=== PATIENT | female | born 1955 | race Caucasian/White ===

== ENCOUNTER 2020-08-15 14:22 | Emergency (ER) | payer SELFPAY ==
--- NOTE | 2020-08-15 14:33 | XRR_ITS ---
PROCEDURE INFORMATION: Exam: XR Left Ankle Exam date and time: 08/15/2020 2:34 PM Age: 64 years old Clinical indication: Injury or trauma; Fall; Initial encounter; Blunt trauma; Ankle; Left; Injury date: 08/15/20; Additional info: Deformity TECHNIQUE: Imaging protocol: XR Left ankle. Views: 3 or more views. COMPARISON: No relevant prior studies available. FINDINGS: Bones/joints: There is a displaced bimalleolar fracture seen with transverse displaced fracture of the medial malleolus and oblique displaced fracture of the distal shaft of the fibula. Are Soft tissues: Soft tissue edema is seen in the anterior and lateral aspect of the ankle XR/XR ankle LT min 3V* [id number] IMPRESSION: 1. Bimalleolar fracture 2. Soft tissue edema
[2020-08-15 14:40] VITALS: BP 120/75; PULSE 102; RESP 16; TEMP 36.9; O2SAT 96; BMI 29.4
--- NOTE | 2020-08-15 15:26 | PC.NURSE ---
no report assuming care of pt.
[2020-08-15] MEDS: ondansetron 2 mg/ML SDV 2 mL 4 MG IVP (15:46)
[2020-08-15 15:49] VITALS: RESP 20; O2SAT 99
[2020-08-15] MEDS: HYDROmorphone 1 mg/mL INJ 1 mL IVP (15:49)
--- NOTE | 2020-08-15 15:51 | PC.NURSE ---
PT HAS STIRRUP AND POSTERIOR SPLINT APPLIED TO LEFT ANKLE BY DR. CLINE.
[2020-08-15 15:54] VITALS: BP 92/72; PULSE 103; RESP 20; O2SAT 96
--- NOTE | 2020-08-15 15:56 | XRR_ITS ---
PROCEDURE INFORMATION: Exam: XR Left Ankle Exam date and time: 08/15/2020 4:44 PM Age: 64 years old Clinical indication: Condition or disease; Foot deformities; Ankle; Other: Fracture; Left; Additional info: Post reduction TECHNIQUE: Imaging protocol: XR Left ankle. Views: 3 or more views. COMPARISON: CR XR ankle LT min 3V* [id number] 08/15/2020 3:04 PM FINDINGS: Bones/joints: Displaced bimalleolar fracture is seen with transverse fracture of the medial malleolus, oblique fracture of the lateral malleolus. Soft tissues: Soft tissue edema is seen in both the medial and lateral aspect of the ankle. Splint material is now in place obscuring soft tissue details. XR/XR ankle LT min 3V* [id number] IMPRESSION: Bimalleolar fracture status post splint placement.
--- NOTE | 2020-08-15 17:32 | ED_ITS ---
HPI - Extremity Problem General: Chief complaint: Extremity Injury, Lower Stated complaint: fracture of left ankle Time Seen by Provider: 08/15/20 14:32 History of Present Illness: HPI Narrative: This patient is a 64-year-old female who fell off her front steps today and broke her left ankle. She denies any other injuries. MD Complaint: extremity pain and joint pain Onset (ago): hour(s) (Just prior to arrival) Pain Consistency: constant Location: left and lower extremity Quality: aching Associated symptoms: Deny chest pain or fever(s) Review of Systems Const: Denies: fever(s) Card: Denies: chest pain Resp: Denies: dyspnea Musc: Reports: joint pain Neuro: Denies: numbness in extremities Physical Exam Const: COMMON NORMALS: patient oriented x3, no limitations and alert GENERAL APPEARANCE: cooperative HENMT: HEAD & SCALP: normal to inspection FACE & SINUS: normal facial exam Eye: GENERAL EYE: appearance normal, both eyes and all related structures Neck/C-Spine: COMMON NORMALS: supple, no meningeal signs and no JVD Chest: COMMONS NORMALS: normal inspection of the chest Resp: COMMON NORMALS: normal respiratory effort, No use of accessory muscles and clear to auscultation bilaterally AUSCULTATION: clear to auscultation bilaterally Cardio: COMMON NORMALS: no JVD, regular rate, regular rhythm and No murmurs present (Cardio) RATE: regular rate RHYTHM: regular rhythm GI: COMMON NORMALS: Normal to inspection, nondistended, normoactive bowel sounds present, Soft to palpation and non-tender INSPECTION: Yes normal to inspection AUSCULTATION: Yes normoactive bowel sounds PALPATION: Yes Soft to palpation Back/Pelvis: COMMON NORMALS: thoracic and lumbar spine normal to inspection Extremity: GENERAL: Yes normal exam except as noted LEFT LOWER EXTREMITY: Yes ankle joint (Swelling, ecchymosis, deformity. No open breaks in the skin. Sensation and pulses intact.) Neuro: COMMON NORMALS: patient oriented x3, moves all extremities, no focal motor deficits and no sensory deficits noted SENSORIUM/ORIENTATION: Yes alert MENINGEAL SIGNS: Yes no meningeal signs Psych: COMMON NORMALS: mental status grossly normal, cooperative and normal affect Skin: COMMON NORMALS: no rashes or lesions noted and turgor normal GENERAL SKIN EXAM: no rashes or lesions noted and turgor normal Course ED course: Patient with obvious deformity of the left ankle. X-rays show bimalleolar fracture with some displacement. I medicated her with pain meds and did some minimal reduction of the ankle and splinted it with a stirrup and posterior short leg. There was improved positioning on the repeat x-ray. Pulses were still intact. Patient be discharged home with pain medication. I spoke with Dr. Menezes and she will see her in the office on Tuesday to schedule surgery. Vital Signs: Vital signs: Vital Signs Temperature 98.5 F 08/15/20 14:40 Pulse Rate 103 H 08/15/20 15:54 Respiratory Rate 20 H 08/15/20 15:54 Blood Pressure 92/72 08/15/20 15:54 Pulse Oximetry 96 08/15/20 15:54 Discharge Plan Discharge Patient Disposition: Home Clinical Impression: Ankle fracture Qualifiers: Encounter type: initial encounter Fracture type: closed Laterality: left Qualified Code(s): S82.892A - Other fracture of left lower leg, initial encounter for closed fracture Condition: Stable Prescriptions: New oxycodone-acetaminophen 5-325 mg tablet 1 tab PO QID PRN (Reason: pain) Qty: 14 RF: 0 No Action Tylenol 325 mg Tablet 325 mg PO QID PRN (Reason: FEVER/PAIN) RF: 0 valsartan-hydrochlorothiazide 160-12.5 mg tablet 1 tab PO DAILY RF: 0 citalopram 20 mg tablet 20 mg PO DAILY RF: 0 ibuprofen 200 mg Tablet 200 - 400 mg PO DAILY RF: 0 ProAir HFA 90 mcg/actuation HFA aerosol inhaler See Rx Instructions .ROUTE .COMPLEX RF: 0 magnesium 200 mg Tablet 200 mg PO DAILY RF: 0 Multiple Vitamin, Womens Tablet 1 tab PO DAILY RF: 0 Discharge Orders: Discharge Order (Routine); Ordered 08/15/20 Ordered By: Padma Yang Referrals: Ericka Leiva MD [Physician] - 1-3 days Discharge Diet: Usual diet Discharge Activity: Resume usual activity Patient Instructions: Ankle Fracture (ED) Activity Restrictions/Additional Instructions: Follow-up with Dr. Leiva on Tuesday. You will most likely need surgery on the ankle. Do not put any weight on your ankle. Use the pain medication as prescribed. Return to the emergency department if worsening symptoms including numbness, pain in the toes. Coding Level of Care Code ED Customer Experience Retail Clerk for Kirill Garcia
[2020-08-15 19:18] VITALS: BP 128/109; PULSE 110; RESP 17; O2SAT 94
--- NOTE | 2020-08-15 19:24 | PC.NURSE ---
REPORT GIVEN TO NICOLLE DORADO ASSUMED CARE
[2020-08-18 10:57] LABS: Coronavirus Lab Test PTC Negative
== END 2020-08-15 20:16 | disposition home or self-care (01) ==
PROVIDERS: Emergency Provider Emergency Medicine
DX: S82.842A Displaced bimalleolar fracture of left lower leg, initial encounter for closed fracture (principal); W10.8XXA Fall (on) (from) other stairs and steps, initial encounter
CPT/HCPCS: 12345; 29515; 73610; 87635; 96374; 96375; 99283; J1170; J2405

== ENCOUNTER 2020-08-19 09:04 | Day surgery (SDC) | payer MEDICARE, SELFPAY ==
--- NOTE | 2020-08-19 | SCC_ITS ---
Procedure Done: Open reduction internal fixation left trimalleolar ankle fracture utilizing the [place] fixation system with a 4-hole lateral fibular plate and 2 headless compression screws medially 95.1 seconds of fluoroscopic guidance, for a cumulative dose of 1.26 mGy, was provided to Dr. Leiva by the radiology department. C-arm images of the LEFT ankle were saved for the patient's permanent record. PAUL
--- NOTE | 2020-08-19 | XR_ITS ---
WS: [id number] INTRAOPERATIVE TECHNIQUE: 4 Spot fluoroscopic images for intraoperative purposes. FLUOROSCOPY TIME: 95.1 seconds CLINICAL INFORMATION: OR PICS FINDINGS: Plate and screw fixation involving the distal fibula and lateral malleolus. Screw fixation across the medial malleolus. Normal ankle mortise. XR/XR ankle LT min 3V* [id number] IMPRESSION: Images obtained for intraoperative purposes.
[2020-08-19 09:37] VITALS: BP 168/78; PULSE 115; RESP 20; TEMP 36.2; O2SAT 99; BMI 29.7
[2020-08-19 09:37] LABS: Add Urine Microscopic? NO
--- NOTE | 2020-08-19 10:02 | P.HPUD_ITS ---
Surgery/Procedure H&P Update DATE OF PROCEDURE: August 19, 2020 DATE H&P PERFORMED: 08/18/20 H&P UPDATE INFORMATION: I have reviewed H&P completed within last 30 days, No changes to prior documentation and H&P is in [facility] EMR on date indicated PREOP DIAGNOSIS: Left trimalleolar ankle fracture PLANNED PROCEDURE: Operation Date: 08/19/20 10:45 Proposed Procedures p ORIF Ankle(Right) - Ericka Leiva MD Related Problem List Diagnoses (1) Trimalleolar fracture of left ankle: Qualifiers: Encounter type: initial encounter Fracture type: closed Qualified Code(s): S82.852A - Displaced trimalleolar fracture of left lower leg, initial encounter for closed fracture
[2020-08-19 10:08] LABS: Bilirubin Urine 1+ (Negative); Blood Urine Neg (Negative); Glucose Urine UA Norm (Normal); Ketones Urine 1+ (Negative); Leukocyte Esterase Urine Negative (Negative); Nitrate Urine Negative (Negative); Protein Urine Neg (Negative); Specific Gravity, Urine 1.015 (1.005-1.030); Urine Appearance Clear (CLEAR); Urine Color Yellow (Yellow); Urobilinogen Urine 1 mg/dL (Negative); pH Urine 5 (5-7)
[2020-08-19 10:18] LABS: Basophils # 0.1 10^3/uL (0.0-0.1); Basophils % 0.9 %; Eosinophils # 0.3 10^3/uL (0.0-0.8); Eosinophils % 4.2 %; Hemoglobin 11.8 g/dL (11.5-15.3); Lymphocytes # 2.3 10^3/uL (0.8-4.8); Lymphocytes % 30.3 %; Mean Corpuscular HGB Conc 32.8 g/dL (30.0-36.0); Mean Corpuscular Hemoglobin 32.6 pg (28.0-34.0); Mean Corpuscular Volume 99.4 fL (81-99); Mean Platelet Volume 10.6 fL (7.4-10.4); Monocytes # 0.5 10^3/uL (0.2-0.9); Monocytes % 6.9 %; Neutrophils # 4.33 10^3/uL (1.8-7.7); Neutrophils % 57.3 %; Nucleated Red Blood Cells % 0 %; Platelet Count 216 10^3/cmm (130-400); Red Blood Count 3.62 10^6/uL (4.1-5.3); Red Cell Distribution Width 12.8 % (12.1-15.1); White Blood Count 7.6 10^3/uL (4.0-10.0)
[2020-08-19] MEDS: sodium chloride 0.9% 1,000 ML 30 ML IV (10:18)
[2020-08-19] MEDS: CELEcoxib 200 mg Capsule 400 MG PO (10:19)
--- NOTE | 2020-08-19 10:33 | ANES.PREANE2 ---
Pre-Anesthetic Assessment Pre-Anesthetic Assessment: Height/Weight: Height 1.7 m Weight 86.183 kg Temp Pulse Resp BP Pulse Ox 97.2 F L 115 H 20 H 168/78 99 08/19/20 09:37 08/19/20 09:37 08/19/20 09:37 08/19/20 09:37 08/19/20 09:37 Preop Diagnosis: Left trimalleolar ankle fracture Proposed Procedure: Operation Date: 08/19/20 10:45 Proposed Procedures p ORIF Ankle(Right) - Ericka Leiva MD Familial anesthetic complications: none Was Beta Nikki taken within 24 hours: N/A Last intake: Intake Last Liquid Date 08/19/20 Last Liquid Time 06:30 Last Solid Date 08/18/20 Last Solid Time 19:30 Social: Social History: Tobacco and No alcohol Exam: Pre-Anes Outpt Exam: alert, oriented x 3, clear to auscultation bilaterally and regular rate & rhythm Airway: Cervical ROM: WNL MP: 3 Dentition: Other (no teeth) Pulmonary: Pulmonary: COPD CV/HEM: CV/HEM: HTN Anesthetic Plan: ASA status: 3 Anesthesia: General and Regional (specify below) Risk of > 500 ml blood loss (7ml/kg in children): No Meds/Allergies Current Medications: Current Medications Generic Name Dose Route Start Last Admin Trade Name Freq PRN Reason Stop Dose Admin Sodium Chloride 1,000 mls @ 30 ml s/hr 08/19/20 09:30 08/19/20 10:18 Sodium Chloride 0.9% IV 08/20/20 09:29 30 mls/hr .Q24H KELLY Administration PFSH Anesthesia PFSH: Medical History (Updated 08/19/20 @ 10:03 by Ericka Leiva MD) Accelerated essential hypertension COPD (chronic obstructive pulmonary disease) Surgical History H/O left knee surgery Hx of total hip arthroplasty Family History Denies family history of Diabetes CAD (coronary artery disease) Hypertension Stroke Social History Smoking and tobacco status: current every day smoker cigarettes Packs smoked per day: 0.5 Data Anesthesia CBC & Chem 7: 08/19/20 10:05 08/19/20 10:05 Other Labs: Laboratory Results - last 48 hr 08/19/20 08/19/20 09:27 10:05 WBC 7.6 RBC 3.62 L Hgb 11.8 Hct 36.0 L MCV 99.4 H MCH 32.6 MCHC 32.8 RDW 12.8 Plt Count 216 MPV 10.6 H Neut % (Auto) 57.3 Lymph % (Auto) 30.3 [place] % (Auto) 6.9 Eos % (Auto) 4.2 Baso % (Auto) 0.9 Neut # (Auto) 4.33 Lymph # (Auto) 2.3 [place] # (Auto) 0.5 Eos # (Auto) 0.3 Baso # (Auto) 0.1 Nucleated RBC % (auto) 0 Nucleated RBCs # 0.0 Urine Color Yellow Urine Appearance Clear Urine pH 5 Ur Specific [place] 1.015 Urine Protein Neg Urine Glucose (UA) Norm Urine Ketones 1+ H Urine Blood Neg Urine Nitrate Negative Urine Bilirubin 1+ H Urine Urobilinogen 1 H Ur Leukocyte Esterase Negative Cardiac Studies: No Data to Display
[2020-08-19 10:35] LABS: Blood Urea Nitrogen 19 mg/dL (8-23); Calcium 9.7 mg/dL (8.5-10.5); Carbon Dioxide 19 mmol/L (22-29); Chloride 100 mmol/L (98-107); Glomerular Filtration Rate 41.4 mL/min (90-130); Glucose 87 mg/dL (65-115); Osmolality Calculated 288 mOsm/kg (285-295); Sodium 138 mmol/L (136-145)
[2020-08-19 10:40] LABS: Anion Gap 23.1 (5-19); Potassium 4.1 mmol/L (3.5-5.1)
--- NOTE | 2020-08-19 10:54 | ANES.PROC ---
Anesthesia Procedures Procedure/Date: 08/19/20 Nerve Block ^: Nerve Block 1: Main Anesthesia: general anesthesia Time Out Performed: Yes Consent: requested by attending/covering physician, from patient, risks and benefits reviewed and patient agrees to proceed Nerve block location: adductor canal (L) Anesthesia monitors applied: pulse oximetry, EKG, BP cuff and oxygen Nerve block position: supine Anesthetic Used: ropivicaine 0.5% and with decadron (1 mg) Amount of anesthesia used (mL): 10 Ultrasound used to: recognize landmarks Interscalene/Femoral BLK: 4 stimuplex 21 g needle used for position and inplane approach, visualize local anesthetic spread and no vascular puncture identified Injection: neg aspiration of heme Patient Tolerated Procedure: well Complications: none Nerve Block 2: Main Anesthesia: general anesthesia Time Out Performed: Yes Consent: requested by attending/covering physician, from patient, risks and benefits reviewed and patient agrees to proceed Nerve block location: popliteal (L) Anesthesia monitors applied: pulse oximetry, EKG, BP cuff and oxygen Nerve block position: supine Anesthetic Used: ropivicaine 0.5% and with decadron (3 mg) Amount of anesthesia used (mL): 20 Ultrasound used to: recognize landmarks Nerve Stimulator Used?: No Interscalene/Femoral BLK: 4 stimuplex 21 g needle used for position and inplane approach, visualize local anesthetic spread and no vascular puncture identified Injection: neg aspiration of heme Patient Tolerated Procedure: well Complications: none
[2020-08-19] MEDS: midazolam 1 mg/mL INJ 5 ML 5 MG IVP (10:56)
--- NOTE | 2020-08-19 10:57 | SUR.PREOP ---
1040 gave only 1 mg of versed per Dr. Mari Phan. wasted 4 mg of Versed.
[2020-08-19] MEDS: ceFAZolin 1,000 mg SDV 1000 MG IRRIGATION (12:13)
[2020-08-19] MEDS: vancomycin 1,000 MG in sodium chloride 0.9% 250 ML 250 MG IV (12:33)
--- NOTE | 2020-08-19 12:50 | SUR.OPER ---
Called son and updated him on surgical progress.
[2020-08-19 13:30] VITALS: BP 123/65; PULSE 120; RESP 16; TEMP 36.7; O2SAT 98
[2020-08-19 13:35] VITALS: BP 142/71; PULSE 120; RESP 18; O2SAT 98
[2020-08-19 13:40] VITALS: BP 141/78; PULSE 113; RESP 15; TEMP 36.7; O2SAT 98
--- NOTE | 2020-08-19 13:40 | P.OP_ITS ---
Operative Report Date of procedure: August 19, 2020 Pre-op Diagnosis: Left trimalleolar ankle fracture Post-op diagnosis: same Procedure Done: Open reduction internal fixation left trimalleolar ankle fracture utilizing the Danna fixation system with a 4-hole lateral fibular plate and 2 headless compression screws medially Specimens removed/disposition: None Pathology: none sent Surgeon: Ericka Leiva Network Firewall Engineer: [facility] OR technicians Anesthesia: General (ASA 3, per LMA with supplemental regional block.) Estimated blood loss (mL): 5 Tourniquet time (min): 64 Tourniquet time: At 250 mmHg IV fluids (mL): 700 Urine output (mL): 0 Urine output: No [place]ry Complications: None Condition: stable Disposition: PACU (Then back to same-day surgery for discharge) Brief History: This 65-year-old woman presented to the office after an emergency department visit. She had a displaced unstable trimalleolar ankle fracture. After discussion in the office, we elected to proceed with operative intervention. The patient was scheduled for open reduction internal fixation. Risks and complications were discussed with her. Preoperatively, she did obtain a wheelchair. She also had a walker available at home. Procedure: Patient was seen in the preoperative holding area and leg was marked. Patient was brought to the operating theater and placed on the operating room table. After undergoing adequate general anesthesia per LMA which was supplemented with a regional block preoperatively, the patient's left lower extremity was prepped and draped in usual fashion utilizing DuraPrep. The leg was draped free. Fluoroscopy was used throughout the surgical procedure. We did have a tourniquet high on the left lower extremity. This was elevated to 250 mmHg and total tourniquet time was 64 minutes. Tourniquet elevation followed exsanguination of the leg. A surgical pause was performed. At the time of the surgical pause we identified the site and side of surgery as well as the patient's identity and availability of equipment. We also confirmed appropriate administration of IV antibiotics. Following the above, an incision was made centering over the patient's oblique fibular fracture. The incision was continued proximally and distally as necessary to allow access to the fracture and to give sufficient room for plate placement. We were able to reduce the fracture anatomically. This was held with a clamp while we contoured a plate to appropriately fit the patient's distal fibula fracture. A Danna 4-hole lateral fibular plate plate was attached with standard technique. We used a combination of locking as well as one nonlocking screw. Once the plate was appropriately attached, we irrigated the wound. We then closed the wound with 0 Vicryl in the fascial tissues, 2-0 Monocryl in the subcutaneous tissues, and the skin was closed with 3-0 Monocryl. Attention was then directed to the [] aspect of the ankle. Once again, we used fluoroscopy to determine the appropriate level of the incision as well as palpation over the fracture. An incision was made over the site of the fracture. We were then able to reduce the fracture. Upon evaluation of the fracture, there was found to be significant soft tissue between the 2 pieces and this was removed. 2 guidewires were placed in appropriate position as visualized in AP and lateral planes. We were then able to place cannulated screws, which were 42 mm and 44 mm in length over the guidewires to hold the medial malleolus nicely reduced. Throughout the surgical procedure and at the conclusion of the procedure we did use fluoroscopy. Fluoroscopy was utilized to determine appropriate positioning of the plate as well as the fractures. At the conclusion we did obtain AP and lateral images demonstrating the fracture was anatomically reduced. The medial incision was closed with a combination 2-0 Monocryl in the subcutaneous tissues and 3-0 Monocryl in the subcuticular tissues. Sterile dressing was placed consisting of Exofin, 4 x 4's, sterile soft roll and an Chano wrap. The patient was placed in a Cam Walker boot and is to remain nonweightbearing. The procedure was well tolerated without complication. Tourniquet time was 64 minutes at 250 mmHg. The patient will be discharged home to follow-up in my office as scheduled. Associated Problem List Diagnoses (1) Trimalleolar fracture of left ankle: Qualifiers: Encounter type: initial encounter Fracture type: closed Qualified Code(s): S82.852A - Displaced trimalleolar fracture of left lower leg, initial encounter for closed fracture
[2020-08-19 13:49] VITALS: BP 123/85; PULSE 109; RESP 18; TEMP 36.7; O2SAT 98
[2020-08-19 14:24] VITALS: BP 119/98; PULSE 101; RESP 18; O2SAT 96
--- NOTE | 2020-08-19 14:25 | ANE.PACU2 ---
Inpatient post-anesthesia follow up: Airway intact: Yes Vital signs: Temperature 98.1 F Pulse Rate 101 Respiratory Rate 18 Blood Pressure 119/98 Pulse Oximetry 96 Oxygen Delivery Me thod Room Air Oxygen Flow Rate Fraction of Inspir ed Oxygen Hydration adequate: Yes Nausea and vomiting: No Pain level: 1 Mental status: Baseline
== END 2020-08-19 14:28 | disposition home or self-care (01) ==
PROVIDERS: PCP Family Medicine; Visit Provider Specialist
PROC: (CPT 27822; principal; 2020-08-19 10:45)
DX: S82.852A Displaced trimalleolar fracture of left lower leg, initial encounter for closed fracture (principal); X58.XXXA Exposure to other specified factors, initial encounter; I10 Essential (primary) hypertension; J44.9 Chronic obstructive pulmonary disease, unspecified; F17.210 Nicotine dependence, cigarettes, uncomplicated; Z96.649 Presence of unspecified artificial hip joint
CPT/HCPCS: 27822; 12345; 36415; 73610; 76000; 80048; 81003; 85025; 96365; C1713; J0131; J0690; J1100; J2250; J2405; J2704; J2765; J2795; J3010; J3370; J7030; J7050

== ENCOUNTER → 2020-09-03 15:14 | Outpatient (BNVA) | payer MEDICARE, SELFPAY | PROVIDERS: PCP Family Medicine; Visit Provider Specialist | DX: S82.852A Displaced trimalleolar fracture of left lower leg, initial encounter for closed fracture (principal); X58.XXXA Exposure to other specified factors, initial encounter | CPT/HCPCS: 73610 ==

== ENCOUNTER → 2020-09-17 14:34 | Outpatient (BNVA) | payer MEDICARE, SELFPAY | PROVIDERS: PCP Family Medicine; Visit Provider Specialist | DX: S82.852A Displaced trimalleolar fracture of left lower leg, initial encounter for closed fracture (principal); X58.XXXA Exposure to other specified factors, initial encounter | CPT/HCPCS: 73610 ==

== ENCOUNTER 2020-10-01 06:00 | Outpatient (RCR) | payer MEDICARE, SELFPAY | END 2020-10-27 23:59 | disposition home or self-care (01) | LOC: TPT 06:00 | PROVIDERS: PCP Family Medicine; Referring Provider Specialist; Visit Provider Specialist | DX: S82.852D Displaced trimalleolar fracture of left lower leg, subsequent encounter for closed fracture with routine healing (principal); X58.XXXD Exposure to other specified factors, subsequent encounter | CPT/HCPCS: 97161 ==

== ENCOUNTER 2021-07-01 12:14 | Inpatient (IN) | payer MEDICARE, SELFPAY ==
[2021-07-01] VITALS (17 sets, daily range): BP systolic 100–184; BP diastolic 42–106; PULSE 82–119; RESP 12–30; TEMP 36.6–36.8; O2SAT 95–98; BMI 29.0
--- NOTE | 2021-07-01 12:25 | ECG_ITS ---
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 Measurements Intervals [place] Rate: 90 P: 94 NV: 186 QRS: -30 QRSD: 97 T: 62 QT: 398 QTc: 489 Interpretive Statements SINUS RHYTHM BORDERLINE LEFT AXIS DEVIATION [QRS AXIS < -20] LOW QRS VOLTAGE IN EXTREMITY LEADS [QRS DEFLECTION < 0.5 mV IN LIMB LEADS] Compared to ECG 07/01/2021 13:21:19 No significant changes Electronically Signed On 07-01-2021 20:23:34 CDT by Tamika Zambrano M.D. [id number]
--- NOTE | 2021-07-01 12:25 | ECG_ITS ---
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 Measurements Intervals [place] Rate: 92 P: 101 [place]: 169 QRS: -17 QRSD: 98 T: 57 QT: 391 QTc: 486 Interpretive Statements SINUS RHYTHM LOW QRS VOLTAGE IN EXTREMITY LEADS [QRS DEFLECTION < 0.5 mV IN LIMB LEADS] No previous ECG available for comparison Electronically Signed On 07-01-2021 20:24:06 CDT by Tamika Zambrano M.D. [id number]
--- NOTE | 2021-07-01 12:48 | USCV_ITS ---
Shalonda Raina Age: 65 Gender: F : 1955 Exam Date: 07/01/2021 12:32 Ordering Phys: Tamiko Cardoza MD Technologist: RANDAL WALLS Exam Location: [facility] Indication: CHEST PAIN AND QUESTION OF RT HEART STRAIN BP: 116 / 81 HR: 96 Rhythm: Sinus Technical Quality: Adequate MEASUREMENTS (Male / Female) Normal Values 2D ECHO LV Chamber Size 3.2 cm RV Chamber Size 2.3 cm LVOT Diameter 2.0 cm LV Ejection Fraction MOD 2C 77.1 % LV Ejection Fraction 2C AL 77.3 % LA Diameter 2.5 cm LA Width 2.7 cm LA Height 3.8 cm RA Width 2.5 cm RA Height 3.6 cm Aorta at Sinotubular Diameter 3.0 cm M-MODE LV Diastolic Diameter MM 4.5 cm 4.2 - 5.9 / 3.9 - 5.3 cm LV Systolic Diameter MM 2.3 cm LV Ejection Fraction MM Teich 79.9 % IVS Diastolic Thickness MM 1.1 cm 0.6 - 1.0 / 0.6 - 0.9 cm IVS Systolic Thickness MM 1.5 cm LVPW Diastolic Thickness MM 1.1 cm 0.6 - 1.0 / 0.6 - 0.9 cm LVPW Systolic Thickness MM 1.3 cm Aortic Annulus Diameter 3.5 cm LA Ao Ratio MM 0.8 MV E Point Septal Separation 0.3 cm DOPPLER AV Peak Velocity 147.0 cm/s LVOT Peak Velocity 115.0 cm/s AV Area Cont Eq vti 2.3 cm squared AV Area Cont Eq pk 2.5 cm squared MV Area PHT 4.2 cm squared Mitral E to A Ratio 1.1 MV E' Velocity 42.0 cm/s Mitral E to MV E' Ratio 9.2 Mitral E to LV E' Lateral Ratio 10.6 Mitral E to LV E' Septal Ratio 8.2 TR Peak Velocity 139.2 cm/s TR Peak Gradient 7.8 mmHg TR Mean Velocity 95.4 cm/s TR Mean Gradient 4.4 mmHg TR Velocity Time Integral 31.9 cm TV Peak E Velocity 69.0 cm/s Right Atrial Pressure 3.0 mmHg Pulmonary Artery Systolic Pressu 10.8 mmHg PV Peak Velocity 71.0 cm/s RV Acceleration Time 0.2 s RV Ejection Time 0.3 s RV AcT/ET 0.5 FINDINGS Left Ventricle Normal left ventricular size. LV systolic function is normal with EF of 60-65%. No regional wall motion abnormalities. Normal diastolic filling pattern. Right Ventricle The right ventricle is normal in size and function. Right Atrium The right atrium is normal in size. RA pressure is normal Left Atrium The left atrium is normal in size. Mitral Valve Structurally normal mitral valve without significant stenosis or prolapse. There is no mitral regurgitation. Aortic Valve Structurally normal aortic valve without significant sclerosis or stenosis. There is no aortic regurgitation. Tricuspid Valve Structurally normal tricuspid valve without significant stenosis or regurgitation. Insufficient TR jet to calculate RVSP Pulmonic Valve Structurally normal pulmonic valve without significant stenosis. There is no pulmonic regurgitation. Pericardium Normal pericardium without effusion. Aorta Normal ascending aorta dimension. CONCLUSIONS LV systolic function is normal with EF of 60-65%. Normal diastolic function No significant valvular heart disease No comparison studies are available Aaron Mcnair MD (Electronically Signed) Final Date: 01 July 2021 17:52 S
[2021-07-01] MEDS: aspirin 81 mg Chew Tablet 324 MG PO (12:52)
--- NOTE | 2021-07-01 13:03 | ED_ITS ---
HPI - Chest Pain General: Chief Complaint: Chest Pain Stated Complaint: CHEST PAIN Time Seen by Provider: 07/01/21 12:18 History of Present Illness: HPI narrative: 35-year-old female with a history of smoking, hypertension, COPD who presents to the emergency room by EMS for concerns of acute chest pressure x2 hours. Per patient, patient developed pressure-like sensation earlier this morning when she was sitting down at home. Since then, even when EMS arrived, patient was noted to be diaphoretic complaining of severe pain. Patient received 5 doses of sublingual nitro with significant improvement. Patient did not have her dentures and cannot swallow t he aspirin from rescue. Per patient, she denies any jaw pain, arm pain, back pain, abdominal complaints, nausea or vomiting. On arrival, patient reports her pain is 5 out of 10 currently. Denies any shortness of breath, Covid symptoms including cough runny nose sore throat generalized weakness or malaise. Patient denies any lower extremity swelling or history of heart failure, family history of cardiac diseases, prior history of stents or CABG. Onset, 2 hours ago Duration: 2 hours Intensity: moderate Location, home Review of Systems Narrative: Constitutional: No fever, no chills. HEENT: No vision changes, no sore throat. CV: +chest pain, no palpitations. PULM: No cough, No dyspnea. GI: No abdominal pain, no N/V/D. : No dysuria, no frequency, no hematuria. MSKEL: No arthralgias, no edema. SKIN: No new rashes, no lesions. NEURO: No headache, no focal weakness. HEME: No easy bleeding or bruising. PSYCH: No change in mood or affect. [facility] ED PFSH: Medical History Accelerated essential hypertension COPD (chronic obstructive pulmonary disease) Surgical History H/O left knee surgery Hx of total hip arthroplasty Family History Denies family history of Diabetes CAD (coronary artery disease) Hypertension Stroke Social History Smoking and tobacco status: current every day smoker cigarettes Packs smoked per day: 0.5 Physical Exam Narrative: EXAM NARRATIVE: Head: Atraumatic, normocephalic Eyes: PERRL, EOMI, conjunctiva without injection ENT: Throat without erythema, lesions or exudate, MMM NECK: Supple, trachea midline, no JVD LUNGS: LCTA CV: RRR, S1,S2, no murmurs, rubs, gallops. 2+ peripheral pulses in UEs ABDOMEN: Soft, nontender, nondistended, BS x4, no rigidity, no guarding, no rebound EXTREMITY: Normal ROM, no pitting edema, no calf tenderness to palpation SKIN: No rash or erythema NEURO: Awake and alert. No focal motor deficits. PSYCH: Normal mood and affect. Course Vital Signs: Vital signs: Vital Signs Temperature 97.8 F 07/01/21 12:16 Pulse Rate 88 07/01/21 16:29 Respiratory Rate 18 07/01/21 16:29 Blood Pressure 116/61 07/01/21 16:29 Pulse Oximetry 96 07/01/21 16:29 MDM - Chest Pain MDM Narrative: Medical decision making narrative: Patient is a 65-year-old female with a history of hypertension, smoking, COPD who presents to the emergency room with complaints of substernal chest pressure started 2 hours ago no improvement. Currently describing a 5 out of 10 chest pain. On exam, patient is hemodynamically stable and noted to be mildly tachycardic to the low 100s. EKG did not show any signs of acute ischemia or signs of STEMI. Is noted to have a D-dimer of 1.1. Bedside ultrasound did not shows any signs of right heart strain, regional wall motion abnormality, or pericardial effusion. Low voltage on EKG is likely secondary to COPD. Initial troponin within normal limit. CTA negative for PE Patient received aspirin and is currently on a nitro drip titrated to comfort Given age, morbidities and high suspicion for unstable angina, will be been at the hospital for further work-up to the cardiac stepdown unit for stress test Disposition: Admission to cardiac stepdown Lab Data: Labs: Lab Results 07/01/21 07/01/21 07/01/21 Range/Units 13:10 13:10 13:10 WBC Cancelled Corrected WBC Cancelled RBC Cancelled Hgb Cancelled Hct Cancelled MCV Cancelled MCH Cancelled MCHC Cancelled RDW Cancelled Plt Count Cancelled MPV Cancelled Total Counted Cancelled Atypical Lymphs % Cancelled Absolute Neutrophi ls Cancelled Segmented Neutroph ils Cancelled Abs Segm Neuts (Ma n) Cancelled Band Neutrophils Cancelled Abs Band Neuts (Ma n) Cancelled Absolute Lymphocyt es Cancelled Lymphocytes (Manua l) Cancelled Monocytes (Manual) Cancelled Absolute Monocytes Cancelled Eosinophils (Manua l) Cancelled Absolute Eosinophi ls Cancelled Basophils (Manual) Cancelled Absolute Basophils Cancelled Metamyelocytes Cancelled Myelocytes Cancelled Promyelocytes Cancelled Nucleated RBCs Cancelled Pathologist Review Cancelled Hypersegmented Benigno ys Cancelled Blast Cells Cancelled Smudge Cells Cancelled Toxic Granulation Cancelled Toxic Vacuolation Cancelled Dohle Bodies Cancelled Priscila Rods Cancelled Platelet Estimate Cancelled Giant Platelets Cancelled Polychromasia Cancelled Hypochromasia Cancelled Poikilocytosis Cancelled Basophilic Stippli ng Cancelled Anisocytosis Cancelled Microcytosis Cancelled Macrocytosis Cancelled Spherocytes Cancelled Sickle Cells Cancelled Target Cells Cancelled Tear Drop Cells Cancelled Ovalocytes Cancelled Stomatocytes Cancelled Helmet Cells Cancelled [place] Vikram s Cancelled Leidy Cells Cancelled Crenated Cell Cancelled Acanthocytes (Spur ) Cancelled Rouleaux Cancelled Schistocytes Cancelled RBC Morph Comment Cancelled D-Dimer (0-0.59) ug/mIFE U Sodium 141 (136-145) mmol/L Potassium 4.1 (3.5-5.1) mmol/L Chloride 104 (98-107) mmol/L Carbon Dioxide 22 (22-29) mmol/L Anion Gap 19.1 H (5-19) BUN 21 (8-23) mg/dL Creatinine 1.0 H (0.5-0.9) mg/dL GFR Calculation 56.0 L (90-130) mL/min Glucose 80 (65-115) mg/dL Calculated Osmolal ity 294 (285-295) mOsm/k g Calcium 9.3 (8.5-10.5) mg/dL Troponin T Baselin e 9 (0-10) ng/L NT-Pro-B Natriuret Pep 763 H (0-125) pg/mL SARS-CoV-2 Ag (Rap id) (Negative) 08/04/21 08/04/21 08/04/21 Range/Units 13:10 14:18 14:25 WBC 5.4 Corrected WBC RBC 3.50 L Hgb 11.7 Hct 38.5 MCV 110.0 H MCH 33.4 MCHC 30.4 RDW 12.6 Plt Count 200 MPV 11.0 H Total Counted 100 Atypical Lymphs % 3.0 Absolute Neutrophi ls 2.5 Segmented Neutroph ils 46 Abs Segm Neuts (Ma n) 2.5 Band Neutrophils 0.0 Abs Band Neuts (Ma n) 0.0 Absolute Lymphocyt es 2.6 Lymphocytes (Manua l) 46 Monocytes (Manual) 3.0 Absolute Monocytes 0.2 Eosinophils (Manua l) 2 Absolute Eosinophi ls 0.1 Basophils (Manual) 0.0 Absolute Basophils 0.0 Metamyelocytes Myelocytes Promyelocytes Nucleated RBCs Pathologist Review Hypersegmented Benigno ys Blast Cells Smudge Cells Toxic Granulation Toxic Vacuolation Dohle Bodies Priscila Rods Platelet Estimate Normal Giant Platelets Polychromasia Hypochromasia Poikilocytosis Basophilic Stippli ng Anisocytosis Microcytosis Macrocytosis Spherocytes Sickle Cells Target Cells Tear Drop Cells Ovalocytes Stomatocytes Helmet Cells [place] Vikram s [place] Cells Crenated Cell Acanthocytes (Spur ) Rouleaux Schistocytes RBC Morph Comment D-Dimer 1.28 H (0-0.59) ug/mIFE U Sodium (136-145) mmol/L Potassium (3.5-5.1) mmol/L Chloride (98-107) mmol/L Carbon Dioxide (22-29) mmol/L Anion Gap (5-19) BUN (8-23) mg/dL Creatinine (0.5-0.9) mg/dL GFR Calculation (90-130) mL/min Glucose (65-115) mg/dL Calculated Osmolal ity (285-295) mOsm/k g Calcium (8.5-10.5) mg/dL Troponin T Baselin e (0-10) ng/L NT-Pro-B Natriuret Pep (0-125) pg/mL SARS-CoV-2 Ag (Rap id) Negative (Negative) Discharge Plan Discharge Prescriptions: No Action (DME) wheelchair See Rx Instructions .Route .MEDSUPPLY Qty: 1 RF: 0 valsartan-hydrochlorothiazide 160-12.5 mg tablet 1 tab PO QAM RF: 0 citalopram 20 mg tablet 20 mg PO QAM RF: 0 albuterol sulfate [ProAir HFA] 90 mcg/actuation HFA aerosol inhaler 2 puff inhalation Q4H PRN (Reason: Shortness Of Breath) RF: 0 multivitamin Tablet 1 tab PO QAM RF: 0 aspirin 325 mg Tablet 325 mg PO ONCE RF: 0 Tylenol Extra Strength 500 mg Tablet 1,000 mg PO PRN RF: 0 ibuprofen 200 mg Tablet 400 mg PO PRN RF: 0 Coding Level of Care Code ED Mortgage Specialist for Kirill Garcia
[2021-07-01 13:50] LABS: Anion Gap 19.1 (5-19); Blood Urea Nitrogen 21 mg/dL (8-23); Calcium 9.3 mg/dL (8.5-10.5); Carbon Dioxide 22 mmol/L (22-29); Chloride 104 mmol/L (98-107); Glucose 80 mg/dL (65-115); NT Pro B Type Natriuretic Pept 763 pg/mL (0-125); Osmolality Calculated 294 mOsm/kg (285-295); Potassium 4.1 mmol/L (3.5-5.1); Sodium 141 mmol/L (136-145); Troponin(5th) Baseline 9 ng/L (0-10)
[2021-07-01] MEDS: nitroglycerin drip 50 MG/250 ML PREMIX IV (14:19)
[2021-07-01 14:20] LABS: D Dimer 1.28 ug/mIFEU (0-0.59)
--- NOTE | 2021-07-01 14:25 | CT_ITS ---
WS: [id number] CT CHEST ANGIOGRAPHY WITH REFORMATS HISTORY: rule out pe TECHNIQUE: Contiguous axial images are obtained through the chest during arterial injection of intrav enous contrast. Images are reconstructed to evaluate the pulmonary arteries. MIP imaging also reviewe d. All CT scans at [facility] use at least one of these dose optimization techniques: aut omated exposure control; mA and/or kV adjustment per patient size (includes targeted exams where dose is matched to clinical indication); or iterative reconstruction. CONTRAST: Visipaque 320; 95 mL IV. DLP: 629.95 mGy.cm COMPARISON: None. Adequate opacification of the pulmonary arteries. No filling defects. Normal size aorta with mild ath erosclerotic plaque. Normal size pulmonary artery. No pericardial pleural effusion. No mediastinal or hilar adenopathy. Small hiatal hernia. There are a few scattered peripheral blebs in the upper lung wei. No pulmonary mass or pneumonia. No effusion. Mild biapical pleural thickening and fibrosis. No acute abnormality within the upper abdomen. No adrenal mass. No osteoblastic or osteolytic bone disease. CT/CT angio chest PE protcl [id number] IMPRESSION: 1. No pulmonary embolism. 2. No pneumonia. 3. Mild atherosclerosis aorta and small hiatal hernia.
[2021-07-01 14:31] LABS: Hematocrit 38.5 % (37.0-47.0); Hemoglobin 11.7 g/dL (11.5-15.3); Mean Corpuscular HGB Conc 30.4 g/dL (30.0-36.0); Mean Corpuscular Hemoglobin 33.4 pg (28.0-34.0); Platelet Count 200 10^3/cmm (130-400); Red Cell Distribution Width 12.6 % (12.1-15.1); White Blood Count 5.4 10^3/uL (4.0-10.0)
--- NOTE | 2021-07-01 14:56 | XR_ITS ---
WS: [id number] Portable AP upright chest, 07/01/2021 Clinical Data: chest pain Comparison: None. Findings: No nodules, masses or effusions are seen. The heart is normal. The pulmonary vascularity is not increased. No pneumonia or pneumothorax is seen. Monitor leads are on the chest wall. XR/XR chest 1V portable [id number] Impression: Negative chest.
[2021-07-01 15:05] LABS: Absolute Eosinophils 0.1 10^3/cmm (0.0-0.7); Absolute Neutrophil 2.5 10^3/cmm (1.4-6.5); Absolute Segmented Neutrophil 2.5 10/cmm (1.6-7.1); Eosinophils 2 %; Lymphocytes 46 %; Lymphocytes Absolute 2.6 10^3/cmm (1.2-3.4); Monocytes Absolute 0.2 10^3/cmm (0.1-0.6); Platelet Estimate Normal (Normal); Segmented Neutrophils 46 %; Total Cells Counted 100 (0-100)
--- NOTE | 2021-07-01 15:07 | PC.NURSE ---
patient resting comfortably. stated i felt OK
[2021-07-01 15:16] LABS: SARS Covid-2 Antigen Negative (Negative)
[2021-07-01] MEDS: iodixanol 320 mg/mL 100mL Btl IV (15:24)
[2021-07-01 16:48] LABS: Troponin 5 2HR 7.52 ng/L (0-10)
[2021-07-01 17:00] LABS: Troponin 5 2HR Delta -1.48 ABS# (0-10)
--- NOTE | 2021-07-01 17:22 | P.HP_ITS ---
Providers/Chief Complaint Primary Care Provider: Reuben Lamar MD Chief Complaint: CHEST PAIN History of Present Illness Raina Liz is a 65 year old female with a past medical history of hypertension, COPD, current smoker, who presents [facility] due to complaints of chest pain. Patient tells me that yesterday in the morning, she developed substernal chest pain, under both breasts, pressure-like squeezing- like pain like something sitting on her chest, lasting a few minutes, nonradiating, associate with shortness of breath, lightheadedness, no nausea, vomiting, diaphoresis, pain would ella and come back, patient thought the pain would go away however the episodes of chest pain persisted. This morning, chest pain persisted episodes lasting longer, more severe, so EMS was called, she was given 4 nitros, before the pain diminished, she was brought to the emergency room, where she is placed on nitro drip, currently going at 5, pain is minimal, under both breast she tells me, like something sitting on her chest, no nradiating, EKG has no acute ST-T wave changes, baseline troponin IX, 120-minute 7.52, CT angiogram of the chest no pulmonary emboli, rapid Covid negative, creatinine 1, hospitalist team was called for admission. Review of Systems Const: Denies: fever(s), chills, fatigue or malaise Eyes: Denies: change in vision or blurry vision ENMT: Denies: nasal congestion Card: Reports: chest pain, palpitations and lightheadedness; Denies: edema, syncope or pre-syncope Resp: Reports: dyspnea; Denies: productive cough, non-productive cough or wheezing GI: Denies: abdominal pain, nausea, vomiting, hematemesis, diarrhea, constipation, hematochezia or melena : Denies: flank pain, dysuria or urinary frequency Musc: Denies: neck pain or back pain Skin/Breast: Denies: rash Neuro: Denies: headache(s), dizziness or vertigo Psych: Denies: anxiety or depression Endo: Denies: polyuria or polydipsia Medications/Allergies Home Medications Medication Instructions Recorded Confirmed Last Taken Type albuterol sulfate [ProAir HFA] 2 puff INHALATION Q4H PRN 08/15/20 07/01/21 06/11/20 History citalopram 20 mg PO QAM 08/15/20 07/01/21 07/01/21 07:00 History valsartan-hydrochlorothiazide 1 tab PO QAM 08/15/20 07/01/21 07/01/21 07:00 History wheelchair #1 ea 08/18/20 07/01/21 Unknown Rx acetaminophen [Tylenol Extra 1,000 mg PO PRN 07/01/21 07/01/21 Unknown History Strength] aspirin 325 mg PO ONCE 07/01/21 07/01/21 06/30/21 History ibuprofen 400 mg PO PRN 07/01/21 07/01/21 Unknown History multivitamin 1 tab PO QAM 07/01/21 07/01/21 07/01/21 History Allergies Allergy/AdvReac Type Severity Reaction Status Date / Time No Known Allergies Allergy Verified 07/01/21 14:20 PFSH Acute PFSH: Medical History (Updated 07/01/21 @ 17:25 by Vishal Lewis MD) Accelerated essential hypertension COPD (chronic obstructive pulmonary disease) Surgical History H/O left knee surgery Hx of total hip arthroplasty Family History (Updated 07/01/21 @ 17:25 by Vishal Lewis MD) Father Stroke Grandmother Mesothelioma Denies family history of Diabetes CAD (coronary artery disease) Hypertension Social History Smoking and tobacco status: current every day smoker cigarettes Packs smoked per day: 0.5 Vitals/I&O/Wt Last Vital Signs Temp 97.8 F 07/01/21 12:16 Pulse 86 07/01/21 17:15 Resp 12 07/01/21 17:15 BP 118/69 07/01/21 17:15 Pulse Ox 98 07/01/21 17:15 07/01/21 07/01/21 07/01/21 06:59 14:59 22:59 Intake Total 0.9 / 0.9 Balance 0.9 / 0.9 Weight last 48 hrs Weight 83.915 kg Data : 07/01/21 14:18 07/01/21 13:10 A&P Assessment and plan (1) Unstable angina: Plan -admit to cardiac stepdown unit -Start aspirin 81 mg, atorvastatin 40 mg, Coreg 3.125 twice daily -Start nitro drip -Telemetry monitoring -cardiac echocardiogram ordered -Monitor for chest pain -Consult cardiology -full code -Lovenox for DVT prophylaxis Status: Acute Attestations Medical Necessity Statement*: Patient requires hospitalization, inpatient, gre ater than 2 midnights, for chest pain Coding Level of Care Code Acute Physical Therapy Technician for josef Garcia Diagnoses Unstable angina I20.0
--- NOTE | 2021-07-01 18:25 | ECG_ITS ---
[facility] Test Date: 2021-07-01 Pat Name: Raina Liz Department: Room: Gender: Female Post Hole Digger: : 1955 Requested By: Tamiko Cardoza Order Number: [id number] Trice MD: Aaron Mcnair M.D. Measurements Intervals [place] Rate: 81 P: 82 ID: [id number] QRS: -30 QRSD: 96 T: 46 QT: 404 QTc: 471 Interpretive Statements SINUS RHYTHM BORDERLINE LEFT AXIS DEVIATION [QRS AXIS < -20] LOW QRS VOLTAGE IN EXTREMITY LEADS [QRS DEFLECTION < 0.5 mV IN LIMB LEADS] Compared to ECG 07/01/2021 13:33:09 No significant changes Electronically Signed On 07-02-2021 10:11:18 CDT by Aaron Mcnair M.D. [id number]
--- NOTE | 2021-07-01 18:34 | P.CONIM_ITS ---
Providers/Reason For Consult Consulting Physician/Specialty*: Aaron Mcnair MD/ Cardiology Reason for Consult*: Unstable angina Requesting Physician: Dr Lewis Attending Physician: Dr Lewis Primary Care Provider: Reuben Lamar MD History of Present Illness History of Present Illness Raina Liz is a 65 year old female with past medical history of hypertension has presented with on and off severe chest pain for 2 days. It is substernal. She has noted radiation to the left arm. Today before coming to the hospital she had a prolonged episode of 2 hours. Her troponins are negative. EKG does not show acute ischemic changes. She underwent CTA to rule out PE and was negative. She has been started on nitro glycerin drip. It has improved pain somewhat still having on and off discomfort. Review of Systems Const: Denies: fever(s), chills, fatigue or malaise Eyes: Denies: change in vision or blurry vision ENMT: Denies: nasal congestion Card: Reports: chest pain, palpitations and lightheadedness; Denies: edema, syncope or pre-syncope Resp: Reports: dyspnea; Denies: productive cough, non-productive cough or wheezing GI: Denies: abdominal pain, nausea, vomiting, hematemesis, diarrhea, const ipation, hematochezia or melena : Denies: flank pain, dysuria or urinary frequency Musc: Denies: neck pain or back pain Skin/Breast: Denies: rash Neuro: Denies: headache(s), dizziness or vertigo Psych: Denies: anxiety or depression Endo: Denies: polyuria or polydipsia Meds/Allergies Home Medications and Allergies Home Medications Medication Instructions Recorded Confirmed Last Taken Type albuterol sulfate [ProAir HFA] 2 puff INHALATION Q4H PRN 08/15/20 07/01/21 06/11/20 History citalopram 20 mg PO QAM 08/15/20 07/01/21 07/01/21 07:00 History valsartan-hydrochlorothiazide 1 tab PO QAM 08/15/20 07/01/21 07/01/21 07:00 History wheelchair #1 ea 08/18/20 07/01/21 Unknown Rx acetaminophen [Tylenol Extra 1,000 mg PO PRN 07/01/21 07/01/21 Unknown History Strength] aspirin 325 mg PO ONCE 07/01/21 07/01/21 06/30/21 History ibuprofen 400 mg PO PRN 07/01/21 07/01/21 Unknown History multivitamin 1 tab PO QAM 07/01/21 07/01/21 07/01/21 History Allergies Allergy/AdvReac Type Severity Reaction Status Date / Time No Known Allergies Allergy Verified 07/01/21 14:20 Current Medications Current Medications Generic Name Dose Route Start Last Admin Trade Name Freq PRN Reason Stop Dose Admin Nitroglycerin/Dextrose 50 mg in 250 mls @ 0 mls/hr 07/01/21 13:15 07/01/21 14:37 Nitroglycerin Drip IV 5 mcg/min .Q0M KELLY 1.5 mls/hr Titration Protocol Per Protocol PFSH Acute PFSH: Medical History (Updated 07/01/21 @ 19:10 by Aaron Mcnair M.D) Accelerated essential hypertension COPD (chronic obstructive pulmonary disease) Surgical History H/O left knee surgery Hx of total hip arthroplasty Family History Father Stroke Grandmother Mesothelioma Denies family history of Diabetes CAD (coronary artery disease) Hypertension Social History Smoking and tobacco status: current every day smoker cigarettes Packs smoked per day: 0.5 Vitals/I&O/Wt Last Vital Signs Temp 97.8 F 07/01/21 12:16 Pulse 86 07/01/21 18:12 Resp 16 07/01/21 18:12 BP 100/51 07/01/21 18:12 Pulse Ox 97 07/01/21 18:12 07/01/21 07/01/21 07/01/21 06:59 14:59 22:59 Intake Total 0.9 / 0.9 Balance 0.9 / 0.9 Weight last 48 hrs Weight 185 lb Physical Exam Narrative: EXAM NARRATIVE: GENERAL: Patient is alert, awake and oriented x3. [] NECK: No jugular vein distension. [] HEENT: No cyanosis. No icterus. No pallor. [] HEART: Regular S1 and S2. No murmur, rub or gallop. [] LUNGS: Clear to auscultate bilaterally. [] ABDOMEN: Soft, nontender and nondistended. Positive bowel sounds. No guarding, rebound or tenderness. [] CENTRAL NERVOUS SYSTEM: Grossly nonfocal. [] EXTREMITIES: Lower extremities with 1+ edema bilaterally. Pulses palpable in the lower extremities, both dorsalis pedis and posterior tibial. [] A&P Assessment and plan (1) Unstable angina: Status: Acute (2) Hypertension: Status: Acute Patient has presented with typical chest pain symptoms. Concerning for unstable angina. Continue aspirin. Nitro drip. Therapeutic Lovenox for anticoagulation. High intensity statin therapy Echocardiogram shows normal LV systolic function. We will plan on coronary angiogram in the morning. Risks and benefits of the procedure have been discussed with the patient. N.p.o. past midnight. Thank you for involving us with the care of this patient. We will continue to follow. Please call with questions. Coding Level of Care Code Acute Mortgage Loan Funder for Kirill Garcia Diagnoses Unstable angina I20.0 Hypertension I10
--- NOTE | 2021-07-01 20:12 | PC.NURSE ---
during pt rounds, pt stating pain 6/10 under breast radiating to back, described as pressure. Dr notified. new orders to increase NTG to 10mcg/min , titrate to comfort, keep MAP >60
[2021-07-01] MEDS: famotidine 20 mg/2 mL INJ IVP (22:55)
[2021-07-01] MEDS: morphine 4 mg/mL SDV 1 mL 2 MG IVP (22:56)
[2021-07-01] MEDS: enoxaparin 40 mg/0.4 mL Syringe SUBCUT (22:57)
[2021-07-01] MEDS: carvedilol 3.125 mg Tablet PO (22:58)
[2021-07-01] MEDS: atorvastatin 40 mg Tablet PO (22:58)
--- NOTE | 2021-07-01 23:07 | PC.NURSE ---
Admit Note Patient admitted to CSU room 102 from ED via stretcher. Patient able to ambulate to bed with standby assistance only. Medications administered as ordered. Covering service notified. Patient presents with chest pain beginning over past couple of days. Orders reviewed & will continue to monitor. Patient and/or manufacturers service representative oriented to environment, equipment, and informed of the following as found in the admission booklet: patient rights & responsibilities, visitor policy, hand and respiratory hygiene practice. Other education includes: Lovenox, carvedilol, Lipitor, pepcid and morphine. Patient and/or manufacturers service representative patient verbalized complete understanding. Patient prepped for LHC scheduled 07/02/[address] Mcnair. Patient reports doctor in to discus the procedure. Patient verbalized understanding.
[2021-07-02] VITALS (42 sets, daily range): BP systolic 113–176; BP diastolic 52–126; PULSE 73–102; RESP 10–26; TEMP 36.9; O2SAT 92–98
--- NOTE | 2021-07-02 02:05 | PC.NURSE ---
Patient reports feeling much better with pain controlled presently. Nitroglycerin drip continues at 3ml/hr presently. BP improving as documented.
[2021-07-02 04:53] LABS: Basophils # 0.1 10^3/uL (0.0-0.1); Basophils % 1.3 %; Eosinophils # 0.2 10^3/uL (0.0-0.8); Eosinophils % 3.5 %; Hematocrit 34.1 % (37.0-47.0); Hemoglobin 11.1 g/dL (11.5-15.3); Lymphocytes # 2.3 10^3/uL (0.8-4.8); Lymphocytes % 41.8 %; Mean Corpuscular HGB Conc 32.6 g/dL (30.0-36.0); Mean Corpuscular Hemoglobin 32.5 pg (28.0-34.0); Mean Corpuscular Volume 99.7 fL (81-99); Mean Platelet Volume 11.2 fL (7.4-10.4); Monocytes # 0.7 10^3/uL (0.2-0.9); Monocytes % 12.3 %; Neutrophils # 2.21 10^3/uL (1.8-7.7); Neutrophils % 40.7 %; Nucleated Red Blood Cells % 0 %; Platelet Count 200 10^3/cmm (130-400); Red Blood Count 3.42 10^6/uL (4.1-5.3); Red Cell Distribution Width 12.3 % (12.1-15.1); White Blood Count 5.4 10^3/uL (4.0-10.0)
[2021-07-02 05:12] LABS: Estmated Average Glucose 103; Hemoglobin A1C 5.2 % (4.0-6.0)
[2021-07-02 05:19] LABS: Alanine Aminotransferase 15 U/L (0-33); Albumin Level 3.8 g/dL (3.5-5.2); Alkaline Phosphatase 75 IU/L (35-105); Anion Gap 18.3 (5-19); Aspartate Amino Transferase 25 U/L (0-32); Blood Urea Nitrogen 18 mg/dL (8-23); Calcium 8.9 mg/dL (8.5-10.5); Carbon Dioxide 25 mmol/L (22-29); Chloride 101 mmol/L (98-107); Chol HDL Ratio 2.54 mg/dL (0.0-4.40); Cholesterol 150 mg/dL (0-200); Globulin 2.1 g/dL (1.3-4.6); Glomerular Filtration Rate 63.2 mL/min (90-130); Glucose 76 mg/dL (65-115); HDL Cholesterol 59 mg/dL (60-100); LDL Cholesterol Calculated 63 mg/dL (50-129); LDL HDL Ratio 1.07 RATIO (0.00-3.22); Magnesium 1.6 mg/dL (1.7-2.3); Osmolality Calculated 291 mOsm/kg (285-295); Phosphorus 3.2 mg/dL (2.5-4.5); Potassium 4.3 mmol/L (3.5-5.1); Sodium 140 mmol/L (136-145); Thyroid Stimulating Hormone 3.68 uIU/mL (0.27-4.20); Total Bilirubin 0.4 mg/dL (0.15-1.2); Total Protein 5.9 g/dL (6.6-8.7); Triglycerides 139 mg/dL (0-150)
[2021-07-02] MEDS: diphenhydrAMINE 50 mg Capsule PO (06:14)
[2021-07-02] MEDS: citalopram 20 mg Tablet PO (06:14)
[2021-07-02] MEDS: sodium chloride 0.9% 1,000 ML 50 ML IV (06:15)
--- NOTE | 2021-07-02 06:33 | PC.NURSE ---
Shift Note Frequent safety and comfort rounds continue. Orders and/or nursing care completed as indicated. Patient monitored for response to intervention and treatment. Education provided includes Benadryl and fluids. Patient and/or farm loan representative verbalized complete understanding. Administered fluids as ordered and observed site to infiltrate and begin to leak. Immediately stopped IV fluids and removed IV access. Initiated new IV site to Left Upper Arm. Flushes and draws well. Restarted fluids. Patient tolerated well. Patient reports improved chest pain with mild pressure remaining. Patient is ready for her [facility] this am. Verbalized complete understanding of all information provided. Consent signed and placed in patient's chart. Will continue to monitor.
--- NOTE | 2021-07-02 06:48 | XACV_ITS ---
Exam Room: [facility] Ht: 170 cm Wt: 84 kg BSA: 2.01 m2 Gender: Female : 1955 Any Known Allergies: No known allergies Exam Priority: Routine Indication(s): - Unstable angina Procedure(s): Procedure Description: Diagnostic procedure Procedure Description: Left Heart Catheterization Procedure Description: Left ventriculography Procedure Description: Coronary Angiography Diagnostic Cath Status: Urgent Diagnostic Findings * No disease noted in the Left Main, Left Anterior Descending, Right, or Circumflex coronary arteries. * Coronary angiography shows right dominance. Conclusions 1. No disease noted in the Left Main, Left Anterior Descending, Right, or Circumflex coronary arteries. 2. Normal left ventricular systolic function. Ejection fraction of 55%. Recommendations * Transfer back to [facility]. * Aggressive risk factor control. * Can be started on Imdur for possible microvascular dysfunction. * Outpatient cardiology follow up in 4 weeks. Diagnostic RX Recommendation: medical therapy and/or counseling Ventriculography Ejection Fraction: 55.0 % Pressures Phase:Rest AO : -10 / -14 ( -12 ) @ 6:42:00 AM 151 / 80 ( 112 ) @ 6:45:00 AM 154 / 45 ( 92 ) @ 6:45:00 AM LV : 157 / 0 / 20 @ 6:44:00 AM 159 / 0 / 22 @ 6:45:00 AM 160 / 0 / 22 @ 6:45:00 AM Valves Phase:DefaultPhase AV : 7.0 @ 7:58:22 AM AV Mean Gradient: 13.0 @ 7:58:22 AM Clinical Evaluation EBL: 5mL-10mL Procedural Details Current Diagnosis : Unstable angina. Pre-Procedure Time Out. Identified patient by full name and date of as verbalized by the patient/guarantor. Does the consent match the physician's order: Yes. Accurate & Complete Informed Consent: Yes. Inpatient/Outpatient History & Physical on Chart: Yes. If H&P is completed, is and addenduem needed: N/A; If yes, is the addendum complete: No. Visualize and Verify Site with Patient/Guarantor: N/A. Relevant Radiology Images available: Yes. Pre-op teaching completed and patient verbalized understanding. The risks, benefits, and alternatives of sedation and/or procedure were discussed by physician. The patient agrees to continue. Procedure started. [facility] Clinical Fraility Score: 3: Managing Well. Bench Assembly Inspector Indications: Worsening Angina. Chest Pain Symptom Assessment: Typical Angina Symptoms. Cardiovascular Instability: No. Correct patient, site and procedure confirmed by cath team. Current diagnosis: Unstable angina. PERRLA. Strong, equal hand stabilizing machine operator bilaterally. Lungs clear x 5 lobes. IV Site on Arrival: 18 gauge in the left anticubital. IV Fluids: 0.9% NaCl at KVO. 200 mL infused prior to phlebotomist medical lab assistant. Pre Procedural Pulses: bilateral radial was 2+. Pre Procedural Pulses: bilateral posterior tibial was 1+. Pre Procedural Pulses: bilateral dorsalis pedis was 2+. Oxygen started at 3liters/min via nasal canula. right radial was prepped with chloroprep then draped in the usual sterile fashion. right groin was prepped with chloroprep then draped in the usual sterile fashion. Physician notified. Baseline sample Acquired. HR: 79 BPM. Physician arrived. Equipment: 6F - Radial. Cardiac Cath Pack. ACIST Manifold Kit Model BT 2000. Heparinized Saline (2 units/mL), 1000 mL bag. Patient's family unavailable. Physician scrubbed in. Immediate Pre-Procedure Time Out. Correct Patient: Yes; Correct Procedure: Yes; Correct Site: Yes; Correct Patient Position: Yes; Correct Supplies: Yes; Dried Flammable Prep: Yes; Blood Products Available: N/A;. Lidocaine 1% infiltrated to the right radial. Arterial access obtained. A 5 indonesian TIG catheter in over exchange wire. Catheter seated in the RCA. Multiple views taken of right coronary artery. Catheter redirected to the LCA. Catheter seated in the LCS. Multiple views taken of left coronary artery. Catheter removed over the exchange wire. A 5 indonesian Angled Pig catheter in over wire. EDP Sample taken: LV 157/-1,20; HR: 90 BPM; SpO2: 99%. LV gram performed in [place] @ 10 mL/second for a total of 30 mL. Patient EF: Normal. EDP Sample taken: LV 159/0,22; HR: 99 BPM; SpO2: 100%. Pullback taken: LV 160/-1,22; AO 151/80(112); Mean: 13mmHg, Peak to Peak: 7mmHg, SEP: 24sec/min; HR: 92 BPM; SpO2: 100%. Catheter removed over the exchange wire. Physician review of cine films. Physician scrubbed out. A TR Band was successful obtaining hemostatsis at the Right Radial artery insertion site. TR band placed. Hemostasis obtained. notified family post procedure at patient request. New number obtained. Post Procedure: Pulses reassessed and unchanged. PERRLA. Strong, equal hand stabilizing machine operator bilaterally. No VTE prophylaxis required. Medication's Wasted: Lidocaine 1% = 18 ml. Medication's Wasted: Nitro = 49.8 mg. Medication's Wasted: Heparin = 1000 Units. Total IV fluids: 50 ml. Fluoro: 4:09. Contrast type used: Omnipaque 300 mgI/mL, 500 mL bottle. Omnipaque 124 ml. Post-op diagnosis: Non obstructive CAD. Complications: None. Estimated blood loss: 5mL-10mL. Procedure completed. Patient transferred by wheelchair to 1st floor. Vital chart was stopped. Access Site Site: Right Radial artery Sheath Size: 6 Fr Hemostasis Method: TR Band Hemostasis Success: Successful Procedure Medications Start: 7:19 AM Stop: 7:19 AM Medication: Versed 1 mg and Fentanyl 25 mcg Amount: 1 Route: I.V. Start: 7:26 AM Stop: 7:26 AM Medication: Versed 1 mg and Fentanyl 25 mcg Amount: 1 Route: I.V. Start: 7:31 AM Stop: 7:31 AM Medication: Versed Amount: 1 mg Route: I.V. Start: 7:31 AM Stop: 7:31 AM Medication: Fentanyl Amount: 50 mcg Route: I.V. Start: 7:31 AM Stop: 7:31 AM Medication: Nitrogylcerin Amount: 200 mcg Route: I.A. Start: 7:34 AM Stop: 7:34 AM Medication: Heparin Amount: 5000 units Route: I.V. Start: 7:35 AM Stop: 7:35 AM Medication: Versed Amount: 1 mg Route: I.V. I, the attending physician, have reviewed and verified all procedure medications. Yes, all medications given per verbal order History/Risk Factors Hypertension: Yes Dyslipidemia: No Peripheral Arterial Disease (PAD): No Myocardial Infarction (WI): No Obesity: No Renal Disease: No Tobacco Use: Current/Recent(w/in 1 year) Prior Interventions PCI: No CABG: No Valve Surgery: No Report Signatures Finalized by Aaron Mcnair MD on 07/02/2021 08:51 AM
--- NOTE | 2021-07-02 07:21 | P.HPUD_ITS ---
Surgery/Procedure H&P Update DATE OF PROCEDURE: July 02, 2021 DATE H&P PERFORMED: 07/01/21 H&P UPDATE INFORMATION: I have reviewed H&P completed within last 30 days and I have examined patient prior to procedure PREOP DIAGNOSIS: Unstable angina PRIMARY INDICATION FOR PROCEDURE: Unstable angina PLANNED PROCEDURE: Left heart cath with possible percutaneous coronary int ervention PATIENT REASSESSED PRIOR TO SEDATION, WITH NO CHANGE NOTED: Yes PHYSICAL EXAM: alert, oriented x 3, clear to auscultation bilaterally and regular rate & rhythm AIRWAY EVAL/ANESTHESIA PLAN: ASA III, Monitored Anesthesia, Local Anesthesia, Risks, benefits & alternatives of sedation and/or procedure discussed and Patient agrees to continue as planned
--- NOTE | 2021-07-02 08:10 | PC.NURSE ---
Patient received from agriculture laboratory technician TR band in place no signs of hematoma or other adverse events noted patient educated on restrictions to extremity patient verbalized understanding
--- NOTE | 2021-07-02 08:41 | P.PN_ITS ---
Subjective Subjective: Interval history: Patient is feeling better. Underwent coronary angiogram today that showed no significant coronary artery disease Vitals/I&O/Wt Last Vital Signs Temp 98.4 F 07/02/21 03:06 Pulse 83 07/02/21 05:12 Resp 20 H 07/02/21 05:12 BP 124/78 07/02/21 05:00 Pulse Ox 95 07/02/21 05:12 07/01/21 07/02/21 07/02/21 22:59 06:59 14:59 Intake Total 12.325 / 13.225 120 / 133.225 Output Total 200 / 200 Balance 12.325 / 13.225 -80 / -66.775 Weight last 48 hrs Weight 185 lb Physical Exam Narrative: EXAM NARRATIVE: GENERAL: Patient is alert, awake and oriented x3. [] NECK: No jugular vein distension. [] HEENT: No cyanosis. No icterus. No pallor. [] HEART: Regular S1 and S2. No murmur, rub or gallop. [] LUNGS: Clear to auscultate bilaterally. [] ABDOMEN: Soft, nontender and nondistended. Positive bowel sounds. No guarding, rebound or tenderness. [] CENTRAL NERVOUS SYSTEM: Grossly nonfocal. [] EXTREMITIES: Lower extremities with 1+ edema bilaterally. Pulses palpable in the lower extremities, both dorsalis pedis and posterior tibial. [] Data : 07/02/21 04:14 07/02/21 04:14 A&P Assessment and plan (1) Unstable angina: Status: Acute (2) Hypertension: Status: Acute Patient presented with typical chest pain symptoms. Concerning for unst able angina. Coronary angiogram was performed that showed no signifcant coronary artery disease. Chest pain likely non cardiac vs secondary to microvascular dysfunction. Can try using Imdur IVF @ 150cc/hr for 6-8 hours Continue aspirin. Nitro gtt can be stopped Echocardiogram shows normal LV systolic function. Thank you for involving us with the care of this patient. Patient is ready to be discharged from cardiology standpoint . Please call with questions. Attestations Medical Necessity Statement*: Care expected to cross 2 midnights. Coding Level of Care Code Acute Featheredger And Reducer Machine for Kirill Garcia Diagnoses Unstable angina I20.0 Hypertension I10
[2021-07-02] MEDS: losartan 50 mg Tablet PO (09:54)
[2021-07-02] MEDS: hydroCHLOROthiazide 25 mg Tablet 12.5 MG PO (09:54)
[2021-07-02] MEDS: carvedilol 3.125 mg Tablet PO (09:54)
[2021-07-02] MEDS: aspirin 81 mg EC Tablet PO (09:55)
[2021-07-02] MEDS: famotidine 20 mg/2 mL INJ IVP (09:55)
--- NOTE | 2021-07-02 10:38 | P.DS_ITS ---
Discharge Providers Date of Admission: 07/01/21 16:35 Date of Discharge: July 02, 2021 Attending Provider at Admission: Vishal Lewis MD Attending Provider at Discharge: Vishal Lewis MD Primary Care Provider: Reuben Lamar MD Diagnoses at Discharge Discharge Diagnosis (1) Unstable angina: Status: Acute Permanent problem details: Coronary angiogram ruled out coronary artery disease (2) Hypertension: Status: Acute Reason for Visit Reason for Visit: CHEST PAIN Hospital Course Hospital Course This is a 65-year-old female with a past medical history of hypertension, smoking, COPD, who presents to [facility] due to complaints of chest pain. Patient was admitted to [facility] for unstable angina, was placed on a nitro drip, EKG no acute ST-T wave changes, no significant troponin elevation, CT angiogram was ordered to evaluate for pulmonary emboli embolism which was negative, cardiology was consulted patient underwent a coronary angiogram which did not show clinically significant obstructive CAD. Likely patient's chest pain was related to a coronary spasm, discharged on a long-acting nitro, with follow-up with cardiology as outpatient. Patient was advised to take aspirin, statin, long-acting nitro, follow-up with cardiology as outpatient patient was advised to quit smoking. Physical Exam Const: COMMON NORMALS: no acute distress and patient oriented x3 Resp: COMMON NORMALS: normal respiratory effort, No retractions, No use of accessory muscles and clear to auscultation bilaterally AUSCULTATION: clear to auscultation bilaterally Cardio: COMMON NORMALS: regular rate, regular rhythm, S1 normal heart sound present and S2 normal heart sound present RATE: regular rate RHYTHM: regular rhythm HEART SOUNDS: S1 normal heart sound present and S2 normal heart sound present GI: COMMON NORMALS: Normal to inspection, nondistended, normoactive bowel sounds present and Soft to palpation PALPATION: Yes Soft to palpation Extremity: COMMON NORMALS: no pedal edema Neuro: COMMON NORMALS: patient oriented x3 Discharge Data Data Completed and Pending: Completed Studies During Hospitalization Category Date Time Status CT angio chest PE protcl [id number] Urge nt Cat Scan 07/01/21 14:25 Completed OPTICAL ELEMENT COATER request for service Routin e Exams 07/02/21 06:48 Completed XR chest 1V jessica ble [id number] Stat Exams 07/01/21 14:56 Completed CV. echo complete * [id number] Stat Ultrasound 07/01/21 12:48 Completed Pending at discharge Category Date Time Status Coronavirus Test [facility] Stat Lab 07/01/21 14:25 Received Magnesium AM LABS Lab 07/03/21 04:00 Ordered Magnesium AM LABS Lab 07/04/21 04:00 Ordered Phosphorus AM LAB S Lab 07/03/21 04:00 Ordered Phosphorus AM LAB S Lab 07/04/21 04:00 Ordered Labs from last 24 hours 07/02/21 07/02/21 07/02/21 04:14 04:14 04:14 WBC 5.4 Corrected WBC RBC 3.42 L Hgb 11.1 L Hct 34.1 L MCV 99.7 H D MCH 32.5 MCHC 32.6 D RDW 12.3 Plt Count 200 MPV 11.2 H Neut % (Auto) 40.7 Lymph % (Auto) 41.8 [place] % (Auto) 12.3 Eos % (Auto) 3.5 Baso % (Auto) 1.3 Neut # (Auto) 2.21 Lymph # (Auto) 2.3 [place] # (Auto) 0.7 Eos # (Auto) 0.2 Baso # (Auto) 0.1 Nucleated RBC % (a uto) 0 Total Counted Atypical Lymphs % Absolute Neutrophi ls Segmented Neutroph ils Abs Segm Neuts (Ma n) Band Neutrophils Abs Band Neuts (Ma n) Absolute Lymphocyt es Lymphocytes (Manua l) Monocytes (Manual) Absolute Monocytes Eosinophils (Manua l) Absolute Eosinophi ls Basophils (Manual) Absolute Basophils Metamyelocytes Myelocytes Promyelocytes Nucleated RBCs Nucleated RBCs # 0.0 Pathologist Review Hypersegmented Benigno ys Blast Cells Smudge Cells Toxic Granulation Toxic Vacuolation Dohle Bodies Priscila Rods Platelet Estimate Giant Platelets Polychromasia Hypochromasia Poikilocytosis Basophilic Stippli ng Anisocytosis Microcytosis Macrocytosis Spherocytes Sickle Cells Target Cells Tear Drop Cells Ovalocytes Stomatocytes Helmet Cells Farris-Shidler Vikram s [employer] [place] Cells Crenated Cell Acanthocytes (Spur ) Rouleaux Schistocytes RBC Morph Comment D-Dimer Sodium 140 Potassium 4.3 Chloride 101 Carbon Dioxide 25 Anion Gap 18.3 BUN 18 Creatinine 0.9 GFR Calculation 63.2 L Glucose 76 Estimat Average Gl ucose 103 Hemoglobin A1c 5.2 Calculated Osmolal ity 291 Calcium 8.9 Phosphorus 3.2 Magnesium 1.6 L Total Bilirubin 0.4 AST 25 ALT 15 Alkaline Phosphata se 75 Troponin T Baselin e Troponin T 120 Min [place] Delta Troponin T NT-Pro-B Natriuret Pep Total Protein 5.9 L Albumin 3.8 Globulin 2.1 Triglycerides 139 Cholesterol 150 LDL Cholesterol, C alc 63 HDL Cholesterol 59 L LDL/HDL Ratio 1.07 Cholesterol/HDL Ra shannan 2.54 TSH 3.68 Nasal/Oral COVID-1 9 PCR SARS-CoV-2 Ag (Rap id) 07/01/21 07/01/21 07/01/21 15:34 14:25 14:25 WBC Corrected WBC RBC Hgb Hct MCV MCH MCHC RDW Plt Count MPV Neut % (Auto) Lymph % (Auto) [place] % (Auto) Eos % (Auto) Baso % (Auto) Neut # (Auto) Lymph # (Auto) [place] # (Auto) Eos # (Auto) Baso # (Auto) Nucleated RBC % (a uto) Total Counted Atypical Lymphs % Absolute Neutrophi ls Segmented Neutroph ils Abs Segm Neuts (Ma n) Band Neutrophils Abs Band Neuts (Ma n) Absolute Lymphocyt es Lymphocytes (Manua l) Monocytes (Manual) Absolute Monocytes Eosinophils (Manua l) Absolute Eosinophi ls Basophils (Manual) Absolute Basophils Metamyelocytes Myelocytes Promyelocytes Nucleated RBCs Nucleated RBCs # Pathologist Review Hypersegmented Benigno ys Blast Cells Smudge Cells Toxic Granulation Toxic Vacuolation Dohle Bodies Priscila Rods Platelet Estimate Giant Platelets Polychromasia Hypochromasia Poikilocytosis Basophilic Stippli ng Anisocytosis Microcytosis Macrocytosis Spherocytes Sickle Cells Target Cells Tear Drop Cells Ovalocytes Stomatocytes Helmet Cells Afrris-Shidler Vkiram s [employer] [place] Cells Crenated Cell Acanthocytes (Spur ) Rouleaux Schistocytes RBC Morph Comment D-Dimer Sodium Potassium Chloride Carbon Dioxide Anion Gap BUN Creatinine GFR Calculation Glucose Estimat Average Gl ucose Hemoglobin A1c Calculated Osmolal ity Calcium Phosphorus Magnesium Total Bilirubin AST ALT Alkaline Phosphata se Troponin T Baselin e Troponin T 120 Min [place] 7.52 Delta Troponin T -1.48 L NT-Pro-B Natriuret Pep Total Protein Albumin Globulin Triglycerides Cholesterol LDL Cholesterol, C alc HDL Cholesterol LDL/HDL Ratio Cholesterol/HDL Ra shannan TSH Nasal/Oral COVID-1 9 PCR Pending SARS-CoV-2 Ag (Rap id) Negative 07/01/21 07/01/21 07/01/21 14:18 13:10 13:10 WBC 5.4 Corrected WBC RBC 3.50 L Hgb 11.7 Hct 38.5 MCV 110.0 H MCH 33.4 MCHC 30.4 RDW 12.6 Plt Count 200 MPV 11.0 H Neut % (Auto) Lymph % (Auto) [place] % (Auto) Eos % (Auto) Baso % (Auto) Neut # (Auto) Lymph # (Auto) [place] # (Auto) Eos # (Auto) Baso # (Auto) Nucleated RBC % (a uto) Total Counted 100 Atypical Lymphs % 3.0 Absolute Neutrophi ls 2.5 Segmented Neutroph ils 46 Abs Segm Neuts (Ma n) 2.5 Band Neutrophils 0.0 Abs Band Neuts (Ma n) 0.0 Absolute Lymphocyt es 2.6 Lymphocytes (Manua l) 46 Monocytes (Manual) 3.0 Absolute Monocytes 0.2 Eosinophils (Manua l) 2 Absolute Eosinophi ls 0.1 Basophils (Manual) 0.0 Absolute Basophils 0.0 Metamyelocytes Myelocytes Promyelocytes Nucleated RBCs Nucleated RBCs # Pathologist Review Hypersegmented Benigno ys Blast Cells Smudge Cells Toxic Granulation Toxic Vacuolation Dohle Bodies Priscila Rods Platelet Estimate Normal Giant Platelets Polychromasia Hypochromasia Poikilocytosis Basophilic Stippli ng Anisocytosis Microcytosis Macrocytosis Spherocytes Sickle Cells Target Cells Tear Drop Cells Ovalocytes Stomatocytes Helmet Cells Farris-Shidler Vikram s [place] Cells Crenated Cell Acanthocytes (Spur ) Rouleaux Schistocytes RBC Morph Comment D-Dimer 1.28 H Sodium Potassium Chloride Carbon Dioxide Anion Gap BUN Creatinine GFR Calculation Glucose Estimat Average Gl ucose Hemoglobin A1c Calculated Osmolal ity Calcium Phosphorus Magnesium Total Bilirubin AST ALT Alkaline Phosphata se Troponin T Baselin e 9 Troponin T 120 Min [place] Delta Troponin T NT-Pro-B Natriuret Pep Total Protein Albumin Globulin Triglycerides Cholesterol LDL Cholesterol, C alc HDL Cholesterol LDL/HDL Ratio Cholesterol/HDL Ra shannan TSH Nasal/Oral COVID-1 9 PCR SARS-CoV-2 Ag (Rap id) 07/01/21 07/01/21 13:10 13:10 WBC Cancelled Corrected WBC Cancelled RBC Cancelled Hgb Cancelled Hct Cancelled MCV Cancelled MCH Cancelled MCHC Cancelled RDW Cancelled Plt Count Cancelled MPV Cancelled Neut % (Auto) Lymph % (Auto) [place] % (Auto) Eos % (Auto) Baso % (Auto) Neut # (Auto) Lymph # (Auto) [place] # (Auto) Eos # (Auto) Baso # (Auto) Nucleated RBC % (a uto) Total Counted Cancelled Atypical Lymphs % Cancelled Absolute Neutrophi ls Cancelled Segmented Neutroph ils Cancelled Abs Segm Neuts (Ma n) Cancelled Band Neutrophils Cancelled Abs Band Neuts (Ma n) Cancelled Absolute Lymphocyt es Cancelled Lymphocytes (Manua l) Cancelled Monocytes (Manual) Cancelled Absolute Monocytes Cancelled Eosinophils (Manua l) Cancelled Absolute Eosinophi ls Cancelled Basophils (Manual) Cancelled Absolute Basophils Cancelled Metamyelocytes Cancelled Myelocytes Cancelled Promyelocytes Cancelled Nucleated RBCs Cancelled Nucleated RBCs # Pathologist Review Cancelled Hypersegmented Benigno ys Cancelled Blast Cells Cancelled Smudge Cells Cancelled Toxic Granulation Cancelled Toxic Vacuolation Cancelled Dohle Bodies Cancelled Priscila Rods Cancelled Platelet Estimate Cancelled Giant Platelets Cancelled Polychromasia Cancelled Hypochromasia Cancelled Poikilocytosis Cancelled Basophilic Stippli ng Cancelled Anisocytosis Cancelled Microcytosis Cancelled Macrocytosis Cancelled Spherocytes Cancelled Sickle Cells Cancelled Target Cells Cancelled Tear Drop Cells Cancelled Ovalocytes Cancelled Stomatocytes Cancelled Helmet Cells Cancelled Farris-Shidler Vikram s Cancelled [place]idy Cells Cancelled Crenated Cell Cancelled Acanthocytes (Spur ) Cancelled Rouleaux Cancelled Schistocytes Cancelled RBC Morph Comment Cancelled D-Dimer Sodium 141 Potassium 4.1 Chloride 104 Carbon Dioxide 22 Anion Gap 19.1 H BUN 21 Creatinine 1.0 H GFR Calculation 56.0 L Glucose 80 Estimat Average Gl ucose Hemoglobin A1c Calculated Osmolal ity 294 Calcium 9.3 Phosphorus Magnesium Total Bilirubin AST ALT Alkaline Phosphata se Troponin T Baselin e Troponin T 120 Min [place] Delta Troponin T NT-Pro-B Natriuret Pep 763 H Total Protein Albumin Globulin Triglycerides Cholesterol LDL Cholesterol, C alc HDL Cholesterol LDL/HDL Ratio Cholesterol/HDL Ra shannan TSH Nasal/Oral COVID-1 9 PCR SARS-CoV-2 Ag (Rap id) Vitals: Last Vital Signs Temp 98.4 F 07/02/21 03:06 Pulse 87 07/02/21 09:26 Resp 18 07/02/21 09:26 BP 137/102 07/02/21 09:54 Pulse Ox 97 07/02/21 09:26 Discharge Plan Discharge Patient Disposition: Home Condition: Stable Prescriptions: New aspirin 81 mg Tablet,Delayed Release (Dr/Ec) 81 mg PO DAILY 30 Days Qty: 30 RF: 0 atorvastatin 40 mg Tablet 40 mg PO BEDTIME 30 Days Qty: 30 RF: 0 isosorbide mononitrate 30 mg tablet extended release 24 hr 30 mg PO DAILY 30 Days Qty: 30 RF: 0 Continued (DME) wheelchair See Rx Instructions .Route .MEDSUPPLY Qty: 1 RF: 0 valsartan-hydrochlorothiazide 160-12.5 mg tablet 1 tab PO QAM RF: 0 citalopram 20 mg tablet 20 mg PO QAM RF: 0 albuterol sulfate [ProAir HFA] 90 mcg/actuation HFA aerosol inhaler 2 puff inhalation Q4H PRN (Reason: Shortness Of Breath) RF: 0 multivitamin Tablet 1 tab PO QAM RF: 0 Tylenol Extra Strength 500 mg Tablet 1,000 mg PO PRN RF: 0 ibuprofen 200 mg Tablet 400 mg PO PRN RF: 0 Discontinued aspirin 325 mg Tablet 325 mg PO ONCE RF: 0 Discharge Orders: Discharge Order (Routine); Ordered 07/02/21 Ordered By: Vishal eLwis Referrals: Reuben Lamar MD [Primary Care Provider] - Discharge Diet: Cardiac Discharge Activity: Resume usual activity Patient Instructions: Opioid Safety Activity Restrictions/Additional Instructions: -If you have recurrent chest pain please go to the emergency room -Please quit smoking -Take aspirin, statin, nitro as prescribed -Follow-up with cardiology in 1 month Discharge Attestations Time Spent in Discharge Care*: less than 30 min Quality Metrics Clinical Quality Measures During this hospital stay, did patient experience: None Coding Level of Care Code Acute Chg FW [place] note Diagnoses Unstable angina I20.0 Hypertension I10
--- NOTE | 2021-07-02 11:06 | PC.CHAP ---
Pastoral Care Encounter/Spiritual Assessment Type of Contact [] Declined school secretary visit [] Patient/Family/Request visit [] Outpatient visit [] Follow-up visit [] Physician referral [] Code/Alert [] Routine visit [] Staff referral [] Actively dying [] Patient sleeping [] Family support [] [] Out of room [] Palliative care [] [] Receiving care in room [] Pre-surgical visit [] Trauma [] Long length of stay [] ICU visit [x] Other: covid Relational/Emotional Strength [] Patient feels connected with others/family/visitors/staff [] Distress [] Loneliness/isolation [] Abandonment Spirituality of Patient [] Person of Aurelia [] Attends Christian of their Aurelia [] Believes in Prayer [] Reads Bible or Denominational materials [] There are Spiritual issues to be addressed Supervisor Of Research Interventions [] Prayer [] Active listening [] Non-anxious presence [] Spiritual/emotional support [] Crisis/trauma care [] Spiritual counseling [] Bereavement support [] Provided bereavement packet [] Provided Bible/devotional materials [] Provided toy/stuffed animal, coloring book to patient or family member [] Provided Communion [] Anointing/[place] [] Salvation [] Completed spiritual assessment [] Other: Impact on Illness or Injury [] Angry [] Fearful [] Anxious [] Often cries [] Exhaustion [] Unable to work [] Unable to attend confucianism [] Unable to walk/stand [] Unable to read [] Unable to drive [] Unable to eat/drink [] Unable to sleep [] Unable to be with family [] Patient intubated [] Other: Summary covid Time spent with patient 5 mins
--- NOTE | 2021-07-02 12:00 | PC.NURSE ---
TR band removed no s/s of heamtoma or outward events patient educated on continued cares
--- NOTE | 2021-07-02 14:00 | PC.NURSE ---
Addendum entered by Ines Lawson RN 07/02/21 14:33: Frequent safety and comfort rounds continue. Orders and/or nursing care completed as indicated. Patient monitored for response to intervention and treatment(s). Education provided includes new medications and follow up care. Patient and/or reimbursement representative verbalized understanding. Will continue to monitor. Original Note: Shift Note Frequent safety and comfort rounds continue. Orders and/or nursing care completed as indicated. Patient monitored for response to intervention and treatment(s). Education provided includes[]. Patient and/or reimbursement representative [ResponseToTeaching]. Will continue to monitor.
--- NOTE | 2021-07-02 14:28 | PC.NURSE ---
Discharge Note Patient discharged to home via private vehicle accompanied by friend. Discharge instructions reviewed with patient and/or underwriting account representative. Mobile pharmacy medications and/or prescriptions provided; medicated e-scribed to [facility] pharmacy . Belongings/home medications returned. Patient verbalized understanding of all instructions provided as well as follow up appointments.
[2021-07-02 15:41] LABS: Coronavirus Test Green County Not Detected
--- NOTE | 2021-07-06 16:51 | PC.RESP ---
Smoking Cessation and Pulmonary Rehab information sent to patient.
== END 2021-07-02 14:40 | disposition home or self-care (01) | DRG 287 ==
LOC: ER 16:37 → CSU 19:31
PROVIDERS: Internal Medicine; Admitting Provider Family Medicine; Emergency Provider Emergency Medicine; PCP Family Medicine; Visit Provider Family Medicine
PROC: 4A023N7 Measurement of Cardiac Sampling and Pressure, Left Heart, Percutaneous Approach (ICD-10-PCS; principal; 2021-07-02 07:00)
DX: I20.1 Angina pectoris with documented spasm (principal); F17.210 Nicotine dependence, cigarettes, uncomplicated; I10 Essential (primary) hypertension; J44.9 Chronic obstructive pulmonary disease, unspecified; Z96.649 Presence of unspecified artificial hip joint; Z79.51 Long term (current) use of inhaled steroids
CPT/HCPCS: 36415; 71045; 71275; 80048; 80053; 80061; 83036; 83735; 83880; 84100; 84443; 84484; 85007; 85025; 85027; 85378; 87426; 87635; 93005; 93306; 93452; 94664; 96361; 96365; 96372; 99285; C1769; C1887; C1894; J1644; J1650; J2250; J2270; J3010; J3490; J7030; Q0163; Q9967

== ENCOUNTER → 2023-03-23 14:02 | Outpatient (BNVA) | payer MEDICARE, SELFPAY | PROVIDERS: PCP Family Medicine; Visit Provider Family Medicine | DX: M25.551 Pain in right hip (principal) | CPT/HCPCS: 73502 ==

== ENCOUNTER → 2023-05-18 10:29 | Outpatient (BNVA) | payer MEDICARE, SELFPAY | PROVIDERS: PCP Family Medicine; Visit Provider Family Medicine | DX: I10 Essential (primary) hypertension (principal); J44.9 Chronic obstructive pulmonary disease, unspecified | CPT/HCPCS: 80053; 80061; 84443; 85025 ==

== ENCOUNTER → 2024-05-15 09:47 | Outpatient (BNVA) | payer MEDICARE, SELFPAY | PROVIDERS: PCP Family Medicine; Visit Provider Family Medicine | DX: F41.9 Anxiety disorder, unspecified (principal); I10 Essential (primary) hypertension; J44.9 Chronic obstructive pulmonary disease, unspecified | CPT/HCPCS: 80053; 80061; 84443; 85025 ==

== ENCOUNTER → 2024-06-21 12:04 | Outpatient (BNVA) | payer MEDICARE, SELFPAY | PROVIDERS: PCP Family Medicine; Visit Provider Family Medicine | DX: R94.6 Abnormal results of thyroid function studies (principal) | CPT/HCPCS: 84439; 84443; 84481 ==

== ENCOUNTER → 2024-08-20 12:54 | Outpatient (BNVA) | payer MEDICARE, SELFPAY | PROVIDERS: PCP Family Medicine; Visit Provider Family Medicine | DX: I10 Essential (primary) hypertension (principal); R94.6 Abnormal results of thyroid function studies | CPT/HCPCS: 80053; 80061; 84439; 84443; 85025 ==

== ENCOUNTER → 2024-10-22 11:49 | Outpatient (BNVA) | payer MEDICARE, SELFPAY | PROVIDERS: Visit Provider Nurse Practitioner Family | DX: I10 Essential (primary) hypertension (principal) | CPT/HCPCS: 80053; 82043; 84443; 85025 ==

== ENCOUNTER → 2024-10-23 13:00 | Outpatient (BNVA) | payer MEDICARE, SELFPAY | PROVIDERS: PCP Nurse Practitioner Family; Visit Provider Nurse Practitioner Family | DX: E87.5 Hyperkalemia (principal) | CPT/HCPCS: 93005 ==

== ENCOUNTER → 2024-11-06 13:58 | Outpatient (BNVA) | payer MEDICARE, SELFPAY | PROVIDERS: PCP Nurse Practitioner Family; Visit Provider Nurse Practitioner Family | DX: N18.4 Chronic kidney disease, stage 4 (severe) (principal) | CPT/HCPCS: 80053; 85025 ==

== ENCOUNTER → 2024-11-22 10:43 | Outpatient (BNVA) | payer MEDICARE, SELFPAY | PROVIDERS: PCP Nurse Practitioner Family; Visit Provider Nurse Practitioner Family | DX: N18.4 Chronic kidney disease, stage 4 (severe) (principal) | CPT/HCPCS: 80053; 85025 ==

== ENCOUNTER → 2024-12-14 11:15 | Outpatient (BNVA) | payer MEDICARE, SELFPAY | PROVIDERS: PCP Nurse Practitioner Family; Visit Provider Nurse Practitioner Family | DX: I10 Essential (primary) hypertension (principal); E78.5 Hyperlipidemia, unspecified; R94.6 Abnormal results of thyroid function studies | CPT/HCPCS: 80053; 80061; 84443; 85025 ==

== ENCOUNTER → 2025-01-31 08:44 | Outpatient (BNVA) | payer MEDICARE, SELFPAY | PROVIDERS: PCP Nurse Practitioner Family; Visit Provider Nurse Practitioner Family | DX: N18.4 Chronic kidney disease, stage 4 (severe) (principal); I10 Essential (primary) hypertension | CPT/HCPCS: 80069; 82306; 82310; 83735; 83970 ==

== ENCOUNTER 2025-02-11 09:32 | Outpatient (CLI) | payer MEDICARE, SELFPAY ==
--- NOTE | 2025-02-11 09:43 | US_ITS ---
WS: [id number] ULTRASOUND RENAL TECHNIQUE: Ultrasound examination of both kidneys. CLINICAL INFORMATION: CKD FINDINGS: Technically difficult study RIGHT: RIGHT renal cyst measuring 1.7 x 1.9 cm Right kidney is normal in size and appearance. Echogenicity: Normal. Cortical thickness: 1.1 cm; Normal. Hydronephrosis: None. Perinephric fluid: None. Right kidney measures: 10.4 cm x 5.2 cm x 3.5 cm. LEFT: Small LEFT renal cyst measuring 2.2 x 1.4 cm. Small nonobstructing LEFT renal calculus. Left kidney is normal in size and appearance. Echogenicity: Normal. Cortical thickness: 1.0 cm; Normal. Hydronephrosis: None. Perinephric fluid: None. Left kidney measures: 8.8 cm x 4.1 cm x 4.1 cm. Normal visualized aorta. Normal visualized bladder US/US renal BI* [id number] IMPRESSION: TDS due to body habitus 1. Bilateral ureteral jets visualized 2. Mild LEFT greater than RIGHT renal atrophy 3. Small bilateral renal cysts.
== END 2025-02-11 09:33 | disposition home or self-care (01) ==
PROVIDERS: PCP Nurse Practitioner Family; Visit Provider Internal Medicine Nephrology
DX: N18.4 Chronic kidney disease, stage 4 (severe) (principal); N26.1 Atrophy of kidney (terminal); N28.1 Cyst of kidney, acquired; N20.0 Calculus of kidney
CPT/HCPCS: 76770

== ENCOUNTER → 2025-02-21 11:34 | Outpatient (BNVA) | payer MEDICARE, SELFPAY | PROVIDERS: PCP Nurse Practitioner Family; Visit Provider Nurse Practitioner Family | DX: R10.11 Right upper quadrant pain (principal) | CPT/HCPCS: 80053; 85025 ==

== ENCOUNTER 2025-03-04 08:25 | Outpatient (CLI) | payer MEDICARE, SELFPAY ==
--- NOTE | 2025-03-04 08:30 | US_ITS ---
WS: [id number] RIGHT UPPER QUADRANT ULTRASOUND HISTORY: R10.11 - Right upper quadrant pain COMPARISON: None available. Liver: 16.1 cm in length. Normal size liver. No mass or intrahepatic dilatation. Portal Vein: Normal hepatopetal flow with monophasic waveform. Gallbladder: Normally distended gallbladder with no stones or wall thickening. CBD: 0.5 cm Pancreas: Poorly visualized. Right kidney: 10.2 cm in length. Normal size kidney. No calyceal dilatation. Small amount of increased fluid at the renal pelvis is probably an extrarenal pelvis. Similar to the study of 02/11/2025. Aorta and IVC: Unremarkable abdominal aorta and IVC. No ascites. US/US gall bladder [id number] IMPRESSION: 1. Negative gallbladder. 2. Limited visualization of the RIGHT kidney. No hydronephrosis or calyceal di latation. 3. No intrahepatic duct dilatation.
== END 2025-03-04 08:26 | disposition home or self-care (01) ==
LOC: RAD 08:26
PROVIDERS: PCP Nurse Practitioner Family; Visit Provider Nurse Practitioner Family
DX: R10.11 Right upper quadrant pain (principal); R93.5 Abnormal findings on diagnostic imaging of other abdominal regions, including retroperitoneum
CPT/HCPCS: 76705

== ENCOUNTER → 2025-04-17 09:48 | Outpatient (BNVA) | payer MEDICARE, SELFPAY | PROVIDERS: PCP Nurse Practitioner Family; Visit Provider Nurse Practitioner Family | DX: I10 Essential (primary) hypertension (principal); E78.5 Hyperlipidemia, unspecified | CPT/HCPCS: 80053; 80061; 84443; 85025 ==

== ENCOUNTER 2025-05-01 12:36 | Outpatient (CLI) | payer MEDICARE, SELFPAY ==
--- NOTE | 2025-05-01 12:40 | MM_ITS ---
WS: [id number] BILATERAL 3D TOMOSYNTHESIS DIGITAL SCREENING MAMMOGRAPHY WITH CAD CLINICAL INFORMATION: Z12.39 - Encounter for other screening for malignant neop... HISTORY: Screening mammogram. No current complaints. COMPARISON: New baseline TECHNIQUE: Bilateral CC and MLO views. FINDINGS: Scattered fibroglandular densities bilaterally. No suspicious focal mass, asymmetry, calcifications, or architectural distortion. No evidence of malignancy. MM/MM scr BI tomosynthesis [id number] IMPRESSION: DENSITY: There are scattered areas of fibroglandular density. BI-RADS: 1 - Negative. FOLLOW UP: 1 Year Follow-up Recommend return to annual screening mammography.
--- NOTE | 2025-05-01 13:00 | XR_ITS ---
WS: [id number] SCREENING DEXA SCAN [facility] CLINICAL INFORMATION: Z78.0 - Asymptomatic menopausal state COMPARISON: None. FINDINGS: The L1-L4 bone mineral density measures 1.20. This corresponds to a T score score of 0.0 and Z score of 0.8. Left forearm bone mineral density measures 0.744. This corresponds to a T score of -1.5 and Z score of 0.1. XR/XR DEXA axial skeleton* [id number] IMPRESSION: Normal bone mineralization lumbar spine. Osteopenia LEFT forearm.
== END 2025-05-01 12:37 | disposition home or self-care (01) ==
PROVIDERS: PCP Nurse Practitioner Family; Visit Provider Nurse Practitioner Family
DX: Z12.31 Encounter for screening mammogram for malignant neoplasm of breast (principal); Z78.0 Asymptomatic menopausal state; M85.832 Other specified disorders of bone density and structure, left forearm; R92.323 Mammographic fibroglandular density, bilateral breasts
CPT/HCPCS: 77063; 77067; 77080

== ENCOUNTER → 2025-05-30 11:38 | Outpatient (BNVA) | payer MEDICARE, SELFPAY | PROVIDERS: PCP Nurse Practitioner Family; Visit Provider Nurse Practitioner Family | DX: N18.4 Chronic kidney disease, stage 4 (severe) (principal) | CPT/HCPCS: 80069; 85007; 85027 ==

== ENCOUNTER → 2025-08-15 08:32 | Outpatient (BNVA) | payer MEDICARE, SELFPAY | PROVIDERS: PCP Nurse Practitioner Family; Visit Provider Nurse Practitioner Family | DX: R10.9 Unspecified abdominal pain (principal); I10 Essential (primary) hypertension | CPT/HCPCS: 80053; 80061; 81000; 85025 ==

== ENCOUNTER → 2025-10-16 12:52 | Outpatient (BNVA) | payer MEDICARE, SELFPAY | PROVIDERS: PCP Nurse Practitioner Family; Visit Provider Nurse Practitioner Family | DX: N18.4 Chronic kidney disease, stage 4 (severe) (principal) | CPT/HCPCS: 80069; 82043; 82306; 82310; 83970; 85025 ==